=== PATIENT | female | born 1985 | race Caucasian/White ===

== ENCOUNTER 2019-07-07 13:26 | Emergency (ER) | payer SELFPAY ==
[2019-07-07 13:37] VITALS: BP 132/73; PULSE 109; RESP 16; TEMP 37.3; O2SAT 98
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
== END 2019-07-07 14:04 | disposition home or self-care (01) ==
PROVIDERS: Emergency Provider Nurse Practitioner
DX: J20.9 Acute bronchitis, unspecified (principal); F17.200 Nicotine dependence, unspecified, uncomplicated
CPT/HCPCS: 81025; 99213; G0463

== ENCOUNTER 2019-07-10 11:24 | Emergency (ER) | payer SELFPAY ==
[2019-07-10 11:33] VITALS: BP 97/74; PULSE 117; RESP 18; TEMP 37.2; O2SAT 96
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
== END 2019-07-10 12:08 | disposition home or self-care (01) ==
PROVIDERS: Emergency Provider Nurse Practitioner
DX: F22 Delusional disorders (principal); L98.9 Disorder of the skin and subcutaneous tissue, unspecified; F17.200 Nicotine dependence, unspecified, uncomplicated
CPT/HCPCS: 99213; G0463

== ENCOUNTER 2019-07-19 20:19 | Emergency (ER) | payer SELFPAY ==
[2019-07-19 20:31] VITALS: BP 115/97; PULSE 104; RESP 22; TEMP 37; O2SAT 98
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
--- NOTE | 2019-07-19 21:53 | PC.NURSE ---
Pt left exam room approx 10 mins ago and went to pvt vehicle. Pt was briefly seen by PA. RN did not have chance to assess or speak with pt. Pt informed Triage staff that she is leaving [place] and will go to [facility] for another opinion. [place] steady and pt in no visible distress
== END 2019-07-19 21:48 | disposition home or self-care (01) ==
PROVIDERS: Emergency Provider Emergency Medicine
DX: Z03.89 Encounter for observation for other suspected diseases and conditions ruled out (principal); F17.210 Nicotine dependence, cigarettes, uncomplicated; F15.90 Other stimulant use, unspecified, uncomplicated; F11.90 Opioid use, unspecified, uncomplicated; Z62.810 Personal history of physical and sexual abuse in childhood; F42.4 Excoriation (skin-picking) disorder
CPT/HCPCS: 99281

== ENCOUNTER 2019-08-31 13:36 | Emergency (ER) | payer MEDICAID, SELFPAY ==
[2019-08-31 14:00] VITALS: BP 116/81; PULSE 89; RESP 18; O2SAT 100
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
== END 2019-08-31 15:56 | disposition home or self-care (01) ==
PROVIDERS: Emergency Provider Emergency Medicine
DX: L02.611 Cutaneous abscess of right foot (principal); F17.210 Nicotine dependence, cigarettes, uncomplicated; F42.4 Excoriation (skin-picking) disorder; F11.90 Opioid use, unspecified, uncomplicated
CPT/HCPCS: 10160; 99283; A9270

== ENCOUNTER 2019-09-15 18:57 | Emergency (ER) | payer MEDICAID, SELFPAY ==
[2019-09-15 19:07] VITALS: BP 135/96; PULSE 114; RESP 18; TEMP 36.9; O2SAT 97
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
[2019-09-15 20:11] LABS: Basophils Percent Auto 0.6 % (0.2-1.2); Eosinophils Absolute Auto 0.1 K/mm3 (0-0.3); Eosinophils Percent Auto 1.1 % (0-4.4); Hematocrit 38.8 % (37.0-47.0); Hemoglobin 12.6 g/dL (12.0-15.0); Immature Granulocyte Absolute 0.01 K/mm3 (0.00-0.031); Immature Granulocyte Percent A 0.2 % (0-0.5); Lymphocytes Absolute Auto 1.62 K/mm3 (0.9-3.2); Lymphocytes Percent Auto 30.8 % (18.3-44.2); Mean Corpuscular HGB Conc 32.5 g/dl (32-36); Mean Corpuscular Hemoglobin 28.4 pg (26-34); Mean Corpuscular Volume 87.6 fl (80-100); Mean Platelet Volume 9.3 fl (7.4-10.4); Monocytes Absolute Auto 0.3 K/mm3 (0.1-0.6); Monocytes Percent Auto 6.1 % (2.6-8.5); Neutrophils Absolute Auto 3.2 K/mm3 (1.3-6.7); Neutrophils Percent Auto 61.2 % (45.5-73.1); Platelet Count Result 180 k/mm3 (150-375); Red Blood Count 4.43 M/mm3 (4.2-5.4); Red Cell Distribution Width 12.6 % (11.5-14.5); White Blood Count 5.3 K/mm3 (4.5-10.0)
[2019-09-15] MEDS: IBUPROFEN 600 MG TABLET PO (20:19)
[2019-09-15 20:23] LABS: Alanine Aminotransferase 82 U/L (4-35); Alkaline Phosphatase 96 U/L (38-126); Aspartate Amino Transferase 69 U/L (14-36); Bilirubin,Total 0.2 mg/dL (0.2-1.3); Blood Urea Nitrogen 10 mg/dL (7-17); Carbon Dioxide 30 mmol/L (22-30); Chloride 103 mmol/L (98-107); Estimated CRCL calculation 80 ml/min; Estimated Glomerular Filt Rate > 60; Glucose 83 mg/dL (65-105); Potassium 4.1 mmol/L (3.4-5.0); Sodium 138 mmol/L (137-145)
== END 2019-09-15 20:30 | disposition home or self-care (01) ==
PROVIDERS: Physician Assistant; Emergency Provider General Practice
DX: Z71.1 Person with feared health complaint in whom no diagnosis is made (principal); F11.90 Opioid use, unspecified, uncomplicated; F17.210 Nicotine dependence, cigarettes, uncomplicated; K76.9 Liver disease, unspecified; F42.4 Excoriation (skin-picking) disorder; Z86.19 Personal history of other infectious and parasitic diseases
CPT/HCPCS: 36415; 80053; 85025; 99283; A9270

== ENCOUNTER 2019-09-30 20:30 | Emergency (ER) | payer MEDICAID, SELFPAY ==
[2019-09-30 20:43] VITALS: RESP 20
[2019-09-30 20:54] VITALS: BP 124/93; PULSE 108; RESP 18; TEMP 36.7; O2SAT 99
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
== END 2019-09-30 21:15 | disposition home or self-care (01) ==
PROVIDERS: Emergency Provider Emergency Medicine
DX: Z04.89 Encounter for examination and observation for other specified reasons (principal); R20.2 Paresthesia of skin
CPT/HCPCS: 99281

== ENCOUNTER 2019-11-02 00:32 | Emergency (ER) | payer MEDICAID, SELFPAY ==
[2019-11-02 00:50] VITALS: BP 128/95; PULSE 83; RESP 18; TEMP 37.2; O2SAT 98
[2019-11-02 01:09] LABS: Basophils Percent Auto 0.7 % (0.2-1.2); Eosinophils Absolute Auto 0.1 K/mm3 (0-0.3); Eosinophils Percent Auto 2.7 % (0-4.4); Hematocrit 36.2 % (37.0-47.0); Hemoglobin 11.7 g/dL (12.0-15.0); Immature Granulocyte Absolute 0.01 K/mm3 (0.00-0.031); Immature Granulocyte Percent A 0.2 % (0-0.5); Lymphocytes Absolute Auto 1.57 K/mm3 (0.9-3.2); Lymphocytes Percent Auto 34.9 % (18.3-44.2); Mean Corpuscular HGB Conc 32.3 g/dl (32-36); Mean Corpuscular Hemoglobin 28.6 pg (26-34); Mean Corpuscular Volume 88.5 fl (80-100); Mean Platelet Volume 9.4 fl (7.4-10.4); Monocytes Absolute Auto 0.3 K/mm3 (0.1-0.6); Monocytes Percent Auto 7.3 % (2.6-8.5); Neutrophils Absolute Auto 2.4 K/mm3 (1.3-6.7); Neutrophils Percent Auto 54.2 % (45.5-73.1); Platelet Count Result 153 k/mm3 (150-375); Red Blood Count 4.09 M/mm3 (4.2-5.4); Red Cell Distribution Width 12.9 % (11.5-14.5); White Blood Count 4.5 K/mm3 (4.5-10.0)
[2019-11-02 01:23] LABS: Alanine Aminotransferase 17 U/L (4-35); Albumin Level 3.8 g/dL (3.5-5.1); Alkaline Phosphatase 74 U/L (38-126); Aspartate Amino Transferase 24 U/L (14-36); Bilirubin,Total 0.2 mg/dL (0.2-1.3); Blood Urea Nitrogen 9 mg/dL (7-17); Calcium 8.9 mg/dL (8.4-10.2); Carbon Dioxide 28 mmol/L (22-30); Chloride 103 mmol/L (98-107); Estimated CRCL calculation 127 ml/min; Estimated Glomerular Filt Rate > 60; Ethanol < 10 mg/dL (<10); Glucose 109 mg/dL (65-105); Potassium 3.9 mmol/L (3.4-5.0); Sodium 138 mmol/L (137-145)
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
[2019-11-02 01:33] LABS: Add Urine Microscopic? YES; Appearance Urine Clear (Clear); Bilirubin Urine Negative (Negative); Blood Urine Negative (Negative); Color Urine Yellow (Yellow); Glucose Urine UA Negative (Negative); Ketones Urine Negative (Negative); Leukocyte Esterase Ur Negative LEU/UL (Negative); Mucus Urine Rare /lpf; Nitrate Urine Negative (Negative); Protein Urine Negative (Negative); RBC Urine 0-2 /hpf (0-2); Specific Grav Ur 1.021 (1.001-1.035); Squamous Epithelial Cell Urine Moderate /hpf (Few); WBC Urine 0-3 /hpf
--- NOTE | 2019-11-02 01:35 | PC.NURSE ---
Pt appears to be sleeping on stretcher. Sitter remains at bedside.
[2019-11-02 01:57] LABS: Barbiturate Screen Urine Negative (Negative); Benzodiazepines Screen Urine Negative (Negative)
[2019-11-02 02:09] LABS: Cannabinoid Screen Urine Negative (Negative); Cocaine Screen Urine Negative (Negative); Methadone Screen Urine Negative (Negative); Opiate Screen Urine Negative (Negative); Phencyclidine Screen Urine Negative (Negative)
[2019-11-02 02:20] LABS: Amphetamine Screen Urine Positive (Negative)
--- NOTE | 2019-11-02 02:35 | PC.NURSE ---
Pt is medically cleared per Dr. Ralph.
--- NOTE | 2019-11-02 02:45 | PC.NURSE ---
Pt resting on stretcher quietly. Sitter remains at bedside.
--- NOTE | 2019-11-02 03:47 | PC.NURSE ---
Sitter back at bedside, pt sleeping soundly at present.
--- NOTE | 2019-11-02 04:10 | PC.NURSE ---
Pt appears to be asleep on stretcher. Sitter remains at bedside.
--- NOTE | 2019-11-02 05:32 | PC.NURSE ---
Pt asleep on stretcher. Sitter remains at bedside per protocol.
[2019-11-02] MEDS: AMOXICILLIN/CLAVULANATE K 875-125 MG TAB 1 TABLET PO (06:30)
--- NOTE | 2019-11-02 06:31 | PC.NURSE ---
Pt given med po. Awakens easily. Denies needs at present. Sitter remains at bedside.
[2019-11-02 09:15] VITALS: BP 113/75; PULSE 77; RESP 18; TEMP 37.5; O2SAT 98
--- NOTE | 2019-11-02 09:18 | PC.NURSE ---
This RN went into pts room to get vitals. Pt was sleeping. This RN woke pt up. Pt states she will need medicine for withdrawing today. Informed pt I would tell DrJodi This RN took vitals and then pt went back to sleep.
--- NOTE | 2019-11-02 10:10 | PC.NURSE ---
PT requested crisis to be called. This RN called and spoke with Erica that states Geno who is the [facility] person will be here in approx 1 hour. Pt also requested a breakfast tray. Charge nurse called for one. Sitter is still at bedside.
--- NOTE | 2019-11-02 11:04 | PC.NURSE ---
Crisis here to speak with pt. Sitter at bedside, pt sleeping.
--- NOTE | 2019-11-02 11:23 | PC.NURSE ---
Geno from Crisis was here speaking with pt. Per Geno she is not going to make a safety contract with pt due do the fact that pt was sleepy . Geno states pt is good to go because at this time pt denies and SI/Hi ideations. Geno did speak with Dr. Marr before she left.
== END 2019-11-02 12:58 | disposition home or self-care (01) ==
PROVIDERS: Emergency Provider Emergency Medicine
DX: F20.9 Schizophrenia, unspecified (principal); F11.20 Opioid dependence, uncomplicated; L03.113 Cellulitis of right upper limb; F17.210 Nicotine dependence, cigarettes, uncomplicated; K76.9 Liver disease, unspecified; L98.8 Other specified disorders of the skin and subcutaneous tissue; F42.4 Excoriation (skin-picking) disorder; Z09 Encounter for follow-up examination after completed treatment for conditions other than malignant neoplasm
CPT/HCPCS: 36415; 80053; 80307; 81001; 81025; 84443; 85025; 99284; A9270

== ENCOUNTER 2020-01-17 03:15 | Emergency (ER) | payer MEDICAID, SELFPAY ==
[2020-01-17 03:21] VITALS: BP 114/77; PULSE 86; RESP 18; TEMP 36.9; O2SAT 97
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
[2020-01-17] MEDS: LIDO 1%/EPINEPHRINE 1:100,000 20 ML VIAL 10 ML INFILTRATE (03:37)
[2020-01-17 04:03] VITALS: BP 113/68; PULSE 77; RESP 16; O2SAT 97
== END 2020-01-17 04:05 | disposition home or self-care (01) ==
PROVIDERS: Emergency Provider Emergency Medicine
DX: L02.211 Cutaneous abscess of abdominal wall (principal); F41.9 Anxiety disorder, unspecified; F32.9 Major depressive disorder, single episode, unspecified
CPT/HCPCS: 10060; 99283; A9270

== ENCOUNTER 2020-03-24 04:55 | Emergency (ER) | payer OTHER, SELFPAY ==
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
--- NOTE | 2020-03-24 04:57 | ECG_ITS ---
Measurements Intervals [place] Rate: 71 P: 17 OR: 125 QRS: 36 QRSD: 78 T: 48 QT: 377 QTc: 410 Interpretive Statements SINUS RHYTHM BASELINE ARTIFACT- I, II, AVR, AVL, AVF, V4-V6 NORMAL ECG Electronically Signed On 03-24-2020 6:28:49 CDT by Aron Ramirez D.O.
[2020-03-24 05:00] VITALS: BP 126/82; PULSE 100; RESP 18; TEMP 36.4; O2SAT 100
[2020-03-24 05:42] LABS: Glucose Point of Care 73 (65-105)
[2020-03-24 05:53] LABS: Basophils Percent Auto 0.4 % (0.2-1.2); Eosinophils Absolute Auto 0.1 K/mm3 (0-0.3); Eosinophils Percent Auto 0.7 % (0-4.4); Hematocrit 36.1 % (37.0-47.0); Hemoglobin 12.3 g/dL (12.0-15.0); Immature Granulocyte Absolute 0.03 K/mm3 (0.00-0.031); Immature Granulocyte Percent A 0.4 % (0-0.5); Lymphocytes Absolute Auto 1.95 K/mm3 (0.9-3.2); Lymphocytes Percent Auto 27.5 % (18.3-44.2); Mean Corpuscular HGB Conc 34.1 g/dl (32-36); Mean Corpuscular Hemoglobin 29.7 pg (26-34); Mean Corpuscular Volume 87.2 fl (80-100); Mean Platelet Volume 9.8 fl (7.4-10.4); Monocytes Absolute Auto 0.5 K/mm3 (0.1-0.6); Monocytes Percent Auto 6.6 % (2.6-8.5); Neutrophils Absolute Auto 4.6 K/mm3 (1.3-6.7); Neutrophils Percent Auto 64.4 % (45.5-73.1); Platelet Count Result 142 k/mm3 (150-375); Red Blood Count 4.14 M/mm3 (4.2-5.4); Red Cell Distribution Width 13.8 % (11.5-14.5); White Blood Count 7.1 K/mm3 (4.5-10.0)
[2020-03-24 06:03] LABS: Add Urine Microscopic? YES; Appearance Urine Clear (Clear); Bacteria Urine Trace /hpf; Bilirubin Urine Negative (Negative); Blood Urine Negative (Negative); Color Urine Yellow (Yellow); Glucose Urine UA Negative (Negative); Ketones Urine Negative (Negative); Leukocyte Esterase Ur Trace LEU/UL (Negative); Mucus Urine Rare /lpf; Nitrate Urine Negative (Negative); Protein Urine 1+ mg/dL (Negative); RBC Urine 0-2 /hpf (0-2); Specific Grav Ur 1.018 (1.001-1.035); Squamous Epithelial Cell Urine Moderate /hpf (Few); Urobilinogen Urine Negative mg/dL (<2.0)
[2020-03-24 06:05] LABS: Alanine Aminotransferase 166 U/L (4-35); Albumin Level 3.6 g/dL (3.5-5.1); Alkaline Phosphatase 87 U/L (38-126); Anion Gap 9 mmol/L (8-16); Aspartate Amino Transferase 94 U/L (14-36); Bilirubin,Total 0.7 mg/dL (0.2-1.3); Blood Urea Nitrogen 15 mg/dL (7-17); Calcium 8.4 mg/dL (8.4-10.2); Carbon Dioxide 26 mmol/L (22-30); Chloride 102 mmol/L (98-107); Estimated CRCL calculation 84 ml/min; Estimated Glomerular Filt Rate > 60; Glucose 85 mg/dL (65-105); Potassium 3.7 mmol/L (3.4-5.0); Sodium 137 mmol/L (137-145)
[2020-03-24 06:14] LABS: Acetaminophen < 10 ug/mL (10-30); Ethanol < 10 mg/dL (<10); Salicylate < 1.0 mg/dL (2-20)
[2020-03-24 06:17] LABS: Barbiturate Screen Urine Negative (Negative); Benzodiazepines Screen Urine Negative (Negative)
[2020-03-24 06:23] LABS: Cannabinoid Screen Urine Negative (Negative); Cocaine Screen Urine Negative (Negative); Methadone Screen Urine Negative (Negative); Opiate Screen Urine Negative (Negative); Phencyclidine Screen Urine Negative (Negative)
[2020-03-24 09:17] VITALS: BP 124/72; PULSE 98; RESP 12; O2SAT 99
[2020-03-24 10:45] VITALS: BP 109/82; PULSE 75; RESP 12; O2SAT 99
--- NOTE | 2020-03-24 10:45 | PC.NURSE ---
Pt. reevaluated for suicidal ideation by RN. Pt. deemed to be low risk based off columbia scale. Pt. denied currently being suicidal at this time but stated having thoughts with no plan. Pt. reevaluated by EDP, and EDP is ok with patient being discharged with mental health resources and substance abuse resources.
== END 2020-03-24 11:01 | disposition home or self-care (01) ==
PROVIDERS: Emergency Provider Emergency Medicine
DX: F15.10 Other stimulant abuse, uncomplicated (principal); T14.90XA Injury, unspecified, initial encounter; Y04.2XXA Assault by strike against or bumped into by another person, initial encounter; Z86.19 Personal history of other infectious and parasitic diseases; Z62.810 Personal history of physical and sexual abuse in childhood; K76.9 Liver disease, unspecified; F17.210 Nicotine dependence, cigarettes, uncomplicated
CPT/HCPCS: 36415; 80053; 80307; 81001; 81025; 82948; 84443; 85025; 87086; 93005; 99283

== ENCOUNTER 2020-04-11 02:38 | Observation (INO) | payer OTHER, SELFPAY ==
[2020-04-11] VITALS (17 sets, daily range): BP systolic 91–137; BP diastolic 67–101; PULSE 63–113; RESP 10–25; TEMP 36.1–36.4; O2SAT 92–100; BMI 17.3
--- NOTE | ~2020-04-11 | CT_ITS ---
EXAMINATION: CT brain wo con EXAM DATE: 04/11/2020 03:14 INDICATION: Temporary change in awareness. TECHNIQUE: Spiral CT of the head was performed without contrast. Axial, coronal and sagittal images were reviewed. The dose-length product (DLP) for this examination was 681.00 mGy-cm. The exposure w as tailored according to patient size, and iterative reconstruction (ASIR) was used as additional dos e reduction technique. There is no prior study for comparison. FINDINGS: There is no acute intraparenchymal hemorrhage. No evidence of intraparenchymal brain mass lesion. No evidence of acute infarction. There is no mass effect or midline shift. The ventricles are normal in size. There are no extra-axial collections. There are no acute calvarial fractures. T he orbits are unremarkable. Soft tissue is unremarkable. Mild sinus mucoperiosteal thickening. IMPRESSION: 1. Normal head CT examination. Reviewed, dictated and finalized at location . [employer]
[2020-04-11] MEDS: diphenhydrAMINE HCl INJ 50 MG/ML VIAL 25 MG IV PUSH (02:42)
[2020-04-11] MEDS: LORazepam INJ (*CRX) 2 MG/ML VIAL IV PUSH (02:42)
--- NOTE | 2020-04-11 02:45 | ECG_ITS ---
Measurements Intervals [place] Rate: 117 P: 69 DC: 129 QRS: 42 QRSD: 82 T: 45 QT: 332 QTc: 465 Interpretive Statements SINUS TACHYCARDIA LEFT ATRIAL ENLARGEMENT BORDERLINE T WAVE ABNORMALITY- ANTERIOR LEADS ABNORMAL ECG Electronically Signed On 04-11-2020 6:54:29 [employer] SET UP OPERATOR JIG by Aron Ramirez D.O.
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
[2020-04-11] MEDS: LACTATED RINGERS 1,000 ML 999 ML IV CONT (03:04)
[2020-04-11 03:13] LABS: Basophils Percent Auto 0.5 % (0.2-1.2); Eosinophils Absolute Auto 0.1 K/mm3 (0-0.3); Eosinophils Percent Auto 0.8 % (0-4.4); Hematocrit 37.6 % (37.0-47.0); Hemoglobin 12.6 g/dL (12.0-15.0); Immature Granulocyte Absolute 0.01 K/mm3 (0.00-0.031); Immature Granulocyte Percent A 0.2 % (0-0.5); Lymphocytes Absolute Auto 1.66 K/mm3 (0.9-3.2); Lymphocytes Percent Auto 27.9 % (18.3-44.2); Mean Corpuscular HGB Conc 33.5 g/dl (32-36); Mean Corpuscular Hemoglobin 29.8 pg (26-34); Mean Corpuscular Volume 88.9 fl (80-100); Mean Platelet Volume 9.4 fl (7.4-10.4); Monocytes Absolute Auto 0.4 K/mm3 (0.1-0.6); Monocytes Percent Auto 6.1 % (2.6-8.5); Neutrophils Absolute Auto 3.8 K/mm3 (1.3-6.7); Neutrophils Percent Auto 64.5 % (45.5-73.1); Platelet Count Result 171 k/mm3 (150-375); Red Blood Count 4.23 M/mm3 (4.2-5.4); Red Cell Distribution Width 13.4 % (11.5-14.5)
--- NOTE | 2020-04-11 03:20 | PC.NURSE ---
Pt. to ct
[2020-04-11 03:26] LABS: Alanine Aminotransferase 98 U/L (4-35); Albumin Level 3.8 g/dL (3.5-5.1); Alkaline Phosphatase 79 U/L (38-126); Anion Gap 5 mmol/L (8-16); Aspartate Amino Transferase 70 U/L (14-36); Bilirubin,Total 0.5 mg/dL (0.2-1.3); Blood Urea Nitrogen 16 mg/dL (7-17); Carbon Dioxide 31 mmol/L (22-30); Chloride 104 mmol/L (98-107); Estimated CRCL calculation 74 ml/min; Estimated Glomerular Filt Rate > 60; Glucose 117 mg/dL (65-105); Potassium 3.2 mmol/L (3.4-5.0); Sodium 140 mmol/L (137-145)
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
[2020-04-11 04:21] LABS: Acetaminophen < 10 ug/mL (10-30); Salicylate < 1.0 mg/dL (2-20)
[2020-04-11 04:24] LABS: Barbiturate Screen Urine Negative (Negative); Benzodiazepines Screen Urine Positive (Negative)
--- NOTE | 2020-04-11 04:26 | PC.NURSE ---
called pharmacy for pt. medication
[2020-04-11 04:29] LABS: Cannabinoid Screen Urine Negative (Negative); Cocaine Screen Urine Negative (Negative); Methadone Screen Urine Negative (Negative); Opiate Screen Urine Positive (Negative); Phencyclidine Screen Urine Negative (Negative)
[2020-04-11] MEDS: KCL 20 MEQ/SW 100 ML 100 ML 50 MEQ IVPB ×2 (04:38→08:29)
[2020-04-11] MEDS: SODIUM CHLORIDE 0.9% IV 1,000 ML 100 ML IV CONT (04:38)
[2020-04-11 04:39] LABS: Fractional Inspired Oxygen 21 %
[2020-04-11 04:43] LABS: Modified Allen's Test Pass; Site Drawn LEFT RADIAL
[2020-04-11 05:04] LABS: PCO2 ABG 50.1 mmHg (35.0-45.0); PO2 ABG 81.7 mmHg (80.0-100.0); pH ABG 7.338 (7.350-7.450)
[2020-04-11 05:05] LABS: Base Excess ABG -0.1 mEq/l (+/-2.0); HCO3 ABG 26.3 mEq/l (22.0-26.0)
[2020-04-11 05:06] LABS: Add Urine Microscopic? YES; Appearance Urine Cloudy (Clear); Bacteria Urine Trace /hpf; Bilirubin Urine Negative (Negative); Blood Urine 2+ (Negative); Color Urine Yellow (Yellow); Glucose Urine UA Negative (Negative); Ketones Urine Negative (Negative); Leukocyte Esterase Ur 2+ LEU/UL (Negative); Mucus Urine Rare /lpf; Nitrate Urine Negative (Negative); Protein Urine 2+ mg/dL (Negative); RBC Urine 21-50 /hpf (0-2); Specific Grav Ur 1.013 (1.001-1.035); Squamous Epithelial Cell Urine Rare /hpf (Few); Urobilinogen Urine Negative mg/dL (<2.0); WBC Urine >75 /hpf
[2020-04-11 05:07] LABS: Amphetamine Screen Urine Positive (Negative)
[2020-04-11 05:07] LABS: Oxygen Saturation ABG 95.3 % (95.0-100.0); Total Hemoglobin 12.4 g/dL (12.0-18.0)
[2020-04-11 05:08] LABS: Oxygen Content ABG 16.4 %vol (16.0-22.0); Oxyhemoglobin 93.9 % THb (90.0-100.0); PO2 FiO2 Ratio Arterial Blood 3.89 %
--- NOTE | 2020-04-11 08:24 | PCDIET ---
This patient, Jacey Queen, was admitted to Intensive Care Unit-10 at .535. Patient oriented to hospital policies and general routines including ID bracelet, bed and alarms, visiting hours, pain management, procedures, bathroom and other care routines, personal items, smoking policy, room service/diet, and visiting hours. Patient arouses to shaking, refuses to answer questions most of the time. Leave me alone you fucking bitch. Information on how to activate the Rapid Response Team has been discussed. Patient are encouraged to report perceived risks to care and to ask questions if they do not understand what they are told or what they should do.
[2020-04-11] MEDS: LACTATED RINGERS 1,000 ML 125 ML IV CONT ×2 (08:28→16:40)
[2020-04-11 08:32] LABS: Basophils Percent Auto 0.6 % (0.2-1.2); Eosinophils Absolute Auto 0.1 K/mm3 (0-0.3); Eosinophils Percent Auto 1.1 % (0-4.4); Hematocrit 36.9 % (37.0-47.0); Hemoglobin 12.4 g/dL (12.0-15.0); Immature Granulocyte Absolute 0.01 K/mm3 (0.00-0.031); Immature Granulocyte Percent A 0.2 % (0-0.5); Lymphocytes Percent Auto 27.1 % (18.3-44.2); Mean Corpuscular HGB Conc 33.6 g/dl (32-36); Mean Corpuscular Hemoglobin 30.2 pg (26-34); Mean Corpuscular Volume 89.8 fl (80-100); Mean Platelet Volume 9.4 fl (7.4-10.4); Monocytes Absolute Auto 0.5 K/mm3 (0.1-0.6); Monocytes Percent Auto 7.8 % (2.6-8.5); Neutrophils Percent Auto 63.2 % (45.5-73.1); Platelet Count Result 170 k/mm3 (150-375); Red Blood Count 4.11 M/mm3 (4.2-5.4); Red Cell Distribution Width 13.4 % (11.5-14.5); White Blood Count 6.3 K/mm3 (4.5-10.0)
[2020-04-11 08:43] LABS: Anion Gap 5 mmol/L (8-16); Blood Urea Nitrogen 14 mg/dL (7-17); Calcium 8.7 mg/dL (8.4-10.2); Carbon Dioxide 29 mmol/L (22-30); Chloride 104 mmol/L (98-107); Estimated CRCL calculation 81 ml/min; Estimated Glomerular Filt Rate > 60; Glucose 87 mg/dL (65-105); Potassium 4.2 mmol/L (3.4-5.0); Sodium 138 mmol/L (137-145)
[2020-04-11 09:50] LABS: Folic Acid 19.2 ng/mL (2.76->20)
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
--- NOTE | 2020-04-11 18:26 | PC.NURSE ---
This patient, Jacey Queen, was received from [ICU-10] on 04/11/20 at 1826. Patient/family oriented to unit policies and routines. REPORT RECEIVED FROM JAGDEEP EDWARDS AT BEDSIDE.
--- NOTE | 2020-04-11 18:35 | PC.NURSE ---
PATIENT TRANSFERRED TO ROOM 206. REPORT GIVEN TO MANDY GALLARDO. ALL QUESTIONS ANSWERED. SITTER AT BEDSIDE.
[2020-04-12] VITALS (7 sets, daily range): BP systolic 115–129; BP diastolic 70–79; PULSE 70–112; RESP 16–18; TEMP 36.2–37.2; O2SAT 98–100
[2020-04-12] MEDS: LACTATED RINGERS 1,000 ML 125 ML IV CONT ×2 (01:42→10:16)
[2020-04-12 11:15] LABS: Hemoglobin 13.1 g/dL (12.0-15.0); Mean Corpuscular HGB Conc 33.6 g/dl (32-36); Mean Corpuscular Hemoglobin 29.4 pg (26-34); Mean Corpuscular Volume 87.6 fl (80-100); Mean Platelet Volume 10.1 fl (7.4-10.4); Platelet Count Result 152 k/mm3 (150-375); Red Blood Count 4.45 M/mm3 (4.2-5.4); Red Cell Distribution Width 13.2 % (11.5-14.5); White Blood Count 4.4 K/mm3 (4.5-10.0)
[2020-04-12 12:15] LABS: Alanine Aminotransferase 107 U/L (4-35); Albumin Level 3.4 g/dL (3.5-5.1); Alkaline Phosphatase 71 U/L (38-126); Anion Gap 5 mmol/L (8-16); Aspartate Amino Transferase 89 U/L (14-36); Bilirubin,Total 0.6 mg/dL (0.2-1.3); Blood Urea Nitrogen 8 mg/dL (7-17); Calcium 8.6 mg/dL (8.4-10.2); Carbon Dioxide 27 mmol/L (22-30); Chloride 104 mmol/L (98-107); Estimated CRCL calculation 99 ml/min; Estimated Glomerular Filt Rate > 60; Glucose 141 mg/dL (65-105); Magnesium 1.9 mg/dL (1.6-2.3); Potassium 3.9 mmol/L (3.4-5.0); Sodium 136 mmol/L (137-145)
[2020-04-12] MEDS: ONDANSETRON INJ 4 MG/2 ML VIAL IV PUSH (12:49)
--- NOTE | 2020-04-12 15:30 | PC.NURSE ---
At approximately 1512 patient stated she wanted to leave AMA. Physician notified of patients' request at this time. I stressed the importance of remaining in the hospital through the duration of required medical care and educated the patient on potential risks and health concerns if she were to leave AMA.Patient verbalized understanding and signed the AMA form. I removed the patient's IV access at this time. She immediately got dressed and walked right out the front door with no shoes. I followed the patient the entire way outside and even tried to reason with her as she was walking off into the parking lot. Security was also notified at this time due patient's extensive illicit drug history.
--- NOTE | 2020-05-14 13:38 | PM.DS ---
DS: Admitting Diagnosis Admitting Diagnosis Admitting Diagnosis: DRUG OVERDOSE, AMS DS: Discharge Diagnosis Discharge Diagnosis (1) Acute encephalopathy: Code(s): G93.40 - Encephalopathy, unspecified Status: Acute Assessment and Plan: Likely secondary to drug overdose/intoxication. Admit to ICU, telemetry, Aspiration precautions. Neurochecks. NPO, Check TSH w/ reflex T4, B12 and Folate levels. Check urinalysis w/ reflex culture. Brain CT was unremarkable for acute pathology. The patient has been treated with ativan/benadryl/haldol which has calmed her down but also made it impossible to assess her neurological function at this time. We will need to re-evaluate her once these medications have work off. Continue close monitoring of cardiopulmonary function in the ICU. Animal Science Instructor has been consulted. Consider MRI and Neuro consult in am. (2) Drug overdose: Qualifiers: Encounter type: initial encounter Injury intent: accidental or unintentional Qualified Code(s): T50.901A - Poisoning by unspecified drugs, medicaments and biological substances, accidental (unintentional), initial encounter Code(s): T50.901A - Poisoning by unspecified drugs, medicaments and biological substances, accidental (unintentional), initial encounter Status: Acute Assessment and Plan: At this time it is unknown if the patient intentionally overdosed on an unknown drug or was simply intoxicated. We will check acetaminophen and salicylate levels which haven't been done yet. Urine tox screen pending. (3) Hypokalemia: Code(s): E87.6 - Hypokalemia Status: Acute Assessment and Plan: We will replace KCL IV. Monitor serum potassium. Telemetry. (4) Liver disease: Code(s): K76.9 - Liver disease, unspecified Status: Chronic Assessment and Plan: Monitor liver function. (5) Hepatitis C: Qualifiers: Viral hepatitis chronicity: unspecified Hepatic coma status: without hepatic coma Qualified Code(s): B19.20 - Unspecified viral hepatitis C without hepatic coma Code(s): B19.20 - Unspecified viral hepatitis C without hepatic coma Status: Chronic DS: Summary Hospital Course Reason for hospitalization: Chief complaint: od Narrative: This is a 34 year old female known drug abuser with history of HCV, depression, and previous suicidal ideation who presented to the hospital via EMS after acting erratic at home which was described to ER staff as yelling, flailing, and screaming nonsensical words. The patient was treated with Versed before arrival to the hospital. In the ER tonight the patient was treated with Benadry, Haldol, and Ativan due to her acute agitation and combative behavior. Brain CT was obtained which was negative for any acute intracranial pathology. Routine labs have been obtained. It's unknown if the patient has overdosed on any drugs or if she was simply intoxicated. ER provider has consulted Animal Science Instructor. On my encounter with the patient she is not arousable to any stimuli due to being medicated. No further history is obtainable at this time from the patient and no family members are present. Hospital Course: patient left AMA Time Spent with Patient Time attestation: Total time spent providing and/or coordinating discharge services: patient left AMA Exam Narrative: Exam Narrative: patient left AMA Discharge Plan Discharge Consulting providers: Jarrett Patel ; William Abraham ; Aron Ramirez ; Toney Simmons Patient Disposition: Left Against Medical Advice Discharge Medications: No Action No Home Medications RF: 0 Date of admission: 04/11/20 11:54 Primary Care Provider: PHYSICIAN,HOSPITAL TECHNICIAN Admitting Provider: Tristan Alcaraz Attending physician on admission: Tristan Alcaraz Condition: Stable Quality VTE Prophylaxis VTE prophylaxis: mechanical ordered
== END 2020-04-12 15:20 | disposition left against medical advice (07) ==
LOC: ANHED 04:39 → ANHICU 12:02 → ANHIMU 18:32
PROVIDERS: Family Medicine; Admitting Provider Family Medicine; Emergency Provider Emergency Medicine; Visit Provider Family Medicine
DX: N39.0 Urinary tract infection, site not specified (principal); G93.40 Encephalopathy, unspecified; B19.20 Unspecified viral hepatitis C without hepatic coma; K76.9 Liver disease, unspecified; E87.8 Other disorders of electrolyte and fluid balance, not elsewhere classified; E87.6 Hypokalemia; R82.5 Elevated urine levels of drugs, medicaments and biological substances; F17.210 Nicotine dependence, cigarettes, uncomplicated; F32.9 Major depressive disorder, single episode, unspecified
CPT/HCPCS: 36415; 36600; 51701; 70450; 80048; 80053; 80307; 81001; 82607; 82746; 82805; 83735; 84443; 85025; 85027; 87040; 87086; 93005; 96361; 96365; 96375; 96376; 99285; G0378; G0379; J0696; J1200; J2060; J2405; J3480; J7030; J7120

== ENCOUNTER 2020-06-01 08:02 | Emergency (ER) | payer OTHER, SELFPAY ==
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
[2020-06-01 08:09] VITALS: BP 128/99; PULSE 88; RESP 20; TEMP 36.8; O2SAT 100
[2020-06-01] MEDS: TETANUS,DIPHTHERIA,AC PERTUSSIS ADULT (0.5 ML) BOOSTRIX IM (08:25)
[2020-06-01 08:30] VITALS: BP 128/75; PULSE 93; RESP 16; O2SAT 96
== END 2020-06-01 08:30 | disposition home or self-care (01) ==
PROVIDERS: Emergency Provider Emergency Medicine
DX: L03.115 Cellulitis of right lower limb (principal); Z23 Encounter for immunization; F15.10 Other stimulant abuse, uncomplicated
CPT/HCPCS: 10060; 90471; 90715; 99283

== ENCOUNTER 2020-06-04 22:50 | Emergency (ER) | payer OTHER, SELFPAY ==
[2020-06-04 23:14] VITALS: BP 113/80; PULSE 111; RESP 16; TEMP 37.1; O2SAT 99
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
[2020-06-04] MEDS: HYDROcodone/acetaminophen (*CRX) 5-325 MG TABLET 1 TAB PO (23:56)
[2020-06-04] MEDS: AMOXICILLIN/CLAVULANATE K 875-125 MG TAB 1 TABLET PO (23:56)
== END 2020-06-05 00:05 | disposition home or self-care (01) ==
PROVIDERS: Emergency Provider Emergency Medicine
DX: S80.871A Other superficial bite, right lower leg, initial encounter (principal); W54.0XXA Bitten by dog, initial encounter
CPT/HCPCS: 99283; A9270

== ENCOUNTER 2020-06-09 01:06 | Emergency (ER) | payer OTHER, SELFPAY ==
[2020-06-09 01:13] VITALS: BP 125/76; PULSE 106; RESP 12; TEMP 37.1; O2SAT 97
[2020-06-09] MEDS: KETOROLAC 30 MG/ML VIAL (*BKC) IV PUSH (01:54)
[2020-06-09] MEDS: HYDROcodone/acetaminophen (*CRX) 5-325 MG TABLET 1 TAB PO (01:59)
[2020-06-09 02:04] LABS: Basophils Percent Auto 0.2 % (0.2-1.2); Hematocrit 36.1 % (37.0-47.0); Hemoglobin 12.5 g/dL (12.0-15.0); Immature Granulocyte Absolute 0.02 K/mm3 (0.00-0.031); Immature Granulocyte Percent A 0.5 % (0-0.5); Immature Platelet Fraction Pct 3.3 % (0.9-11.2); Lymphocytes Absolute Auto 0.92 K/mm3 (0.9-3.2); Lymphocytes Percent Auto 21.4 % (18.3-44.2); Mean Corpuscular HGB Conc 34.6 g/dl (32-36); Mean Corpuscular Hemoglobin 30.2 pg (26-34); Mean Corpuscular Volume 87.2 fl (80-100); Mean Platelet Volume 10.4 fl (7.4-10.4); Monocytes Absolute Auto 0.3 K/mm3 (0.1-0.6); Monocytes Percent Auto 7.7 % (2.6-8.5); Neutrophils Percent Auto 70.2 % (45.5-73.1); Platelet Count Result 139 k/mm3 (150-375); Red Blood Count 4.14 M/mm3 (4.2-5.4); Red Cell Distribution Width 13.5 % (11.5-14.5); White Blood Count 4.3 K/mm3 (4.5-10.0)
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
[2020-06-09 02:15] LABS: Lactic Acid Reflex 2.9 mmol/L (0.7-2.1)
[2020-06-09 02:16] LABS: Alanine Aminotransferase 73 U/L (4-35); Albumin Level 3.5 g/dL (3.5-5.1); Alkaline Phosphatase 67 U/L (38-126); Anion Gap 6 mmol/L (8-16); Aspartate Amino Transferase 206 U/L (14-36); Blood Urea Nitrogen 26 mg/dL (7-17); Calcium 8.3 mg/dL (8.4-10.2); Carbon Dioxide 31 mmol/L (22-30); Chloride 100 mmol/L (98-107); Estimated Glomerular Filt Rate > 60; Glucose 110 mg/dL (65-105); Potassium 3.8 mmol/L (3.4-5.0); Sodium 137 mmol/L (137-145)
[2020-06-09] MEDS: CLINDAMYCIN 600 MG/NS 50 ML 600 MG/50 ML PIGGYBACK 100 MG IVPB (02:36)
[2020-06-09 05:00] LABS: Reflex Lactic Acid Yes or No Add Lactic
== END 2020-06-09 03:36 | disposition home or self-care (01) ==
PROVIDERS: Emergency Provider Emergency Medicine; Referring Provider Family Medicine
DX: S81.812D Laceration without foreign body, left lower leg, subsequent encounter (principal); S81.811D Laceration without foreign body, right lower leg, subsequent encounter; W54.0XXD Bitten by dog, subsequent encounter; F17.210 Nicotine dependence, cigarettes, uncomplicated
CPT/HCPCS: 36415; 80053; 83605; 85025; 85055; 96365; 96375; 99284; A9270; J1885

== ENCOUNTER 2020-06-25 16:58 | Emergency (ER) | payer OTHER, SELFPAY ==
--- NOTE | ~2020-06-25 | XR_ITS ---
EXAMINATION: XR chest 1V portable INDICATION: Overdose, altered mental status TECHNIQUE: Portable AP chest at 1734 hours COMPARISON: None available FINDINGS: The lungs are free of acute opacities. There is no pleural effusion or pneumothorax. The ca rdiomediastinal silhouette is normal. The visualized osseous structures are unremarkable. IMPRESSION: 1. No acute cardiopulmonary abnormality. Reviewed, dictated and finalized at location A. [employer]
[2020-06-25 16:55] VITALS: BP 121/98; PULSE 112; RESP 14; TEMP 36.4; O2SAT 98
[2020-06-25 17:00] VITALS: RESP 23
--- NOTE | 2020-06-25 17:12 | PC.NURSE ---
This RN attempting to start an IV, Pt refusing.
[2020-06-25 17:40] VITALS: BP 119/79; PULSE 106; RESP 12; O2SAT 98
--- NOTE | 2020-06-25 17:40 | PC.NURSE ---
PT LAYING ON STRETCHER, PT ON TELE MONITOR - REFUSES IV AT THIS TIME. PUT UNCOOPERATIVE.
--- NOTE | 2020-06-25 17:57 | PC.NURSE ---
PT REFUSES TO PROVIDE U/A AT THIS TIME, RESTING ON STRETCHER, ON TELE MONITOR, STATES NO I DONT WANT AN IV OR FLUIDS, I FEEL TERRIBLE. JUST LEAVE ME ALONE.
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
--- NOTE | 2020-06-25 18:32 | PC.NURSE ---
Pt refused labs
--- NOTE | 2020-06-25 19:05 | PC.NURSE ---
patient walked out after signing out ama
[2020-06-25 19:23] VITALS: BP 114/79; PULSE 69; RESP 16; O2SAT 97
== END 2020-06-25 19:18 | disposition left against medical advice (07) ==
PROVIDERS: Emergency Provider Emergency Medicine
DX: T40.601A Poisoning by unspecified narcotics, accidental (unintentional), initial encounter (principal); F17.210 Nicotine dependence, cigarettes, uncomplicated; F41.9 Anxiety disorder, unspecified; F32.9 Major depressive disorder, single episode, unspecified
CPT/HCPCS: 71045; 99283

== ENCOUNTER 2020-08-20 18:06 | Emergency (ER) | payer OTHER, SELFPAY ==
--- NOTE | ~2020-08-20 | CT_ITS ---
EXAMINATION: CT brain wo con DATE: 08/20/2020 18:49 INDICATION: Altered mental state. History of schizophrenia and bipolar disease. Meth abuse. TECHNIQUE: Computed tomography (CT) of the abdomen was performed without intravenous contrast. Automa cory exposure control and iterative reconstruction technique were employed. Exam dose: 1059.33 mGy-cm total exam DLP. COMPARISON: 04/11/2020 CT head FINDINGS: 2 sets of scans were obtained due to motion. Both sets are limited by motion artifact. No apparent intracranial mass lesion or hemorrhage, midline shift or mass effect or subdural or epidu ral hematoma is detected. Normal ventricular size. Normal kelly-white matter differentiation. No apparent fracture or bone destruction of the cranial vault. Included paranasal sinuses and mastoid air cells are unremarkable. IMPRESSION: Limited examination due to motion artifact; no apparent abnormality Reviewed, dictated and finalized at [facility]. Reviewed, dictated and finalized at location A. IMPRESSION: Limited examination due to motion artifact; no apparent abnormalit y
--- NOTE | ~2020-08-20 | XR_ITS ---
XR chest 1V portable DATE: 08/20/2020 18:39 INDICATION: Transient alteration of awareness. TECHNIQUE: Portable upright AP chest on 08/20/2020 at 1841 hours COMPARISON: 06/25/2020 portable AP chest FINDINGS: Mild thoracic dextroscoliosis. Normal heart size. No hilar or mediastinal enlargement. Mild focal infiltrate is suggested in the right upper lobe including right lateral apical area. Other perkins no pulmonary infiltrate or consolidation, pleural effusion or pulmonary vascular congestion or p neumothorax. IMPRESSION: Mild infiltrate is suggested in the right upper lobe. Reviewed, dictated and finalized at location A.
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
[2020-08-20 18:27] VITALS: BP 104/71; PULSE 100; RESP 14; TEMP 36.1; O2SAT 99
[2020-08-20] MEDS: LORazepam INJ (*CRX) 2 MG/ML VIAL 1 MG IV PUSH (20:16)
[2020-08-20] MEDS: DEXTROSE 5%/LACTATED RINGERS 1,000 ML 999 ML IV CONT (20:22)
[2020-08-20 20:23] LABS: Basophils Absolute Auto 0.1 K/mm3 (0.0-0.1); Basophils Percent Auto 0.4 % (0.2-1.2); Eosinophils Percent Auto 0.1 % (0-4.4); Hematocrit 38.3 % (37.0-47.0); Hemoglobin 12.8 g/dL (12.0-15.0); Immature Granulocyte Absolute 0.07 K/mm3 (0.00-0.031); Immature Granulocyte Percent A 0.6 % (0-0.5); Lymphocytes Absolute Auto 1.25 K/mm3 (0.9-3.2); Lymphocytes Percent Auto 11.2 % (18.3-44.2); Mean Corpuscular HGB Conc 33.4 g/dl (32-36); Mean Corpuscular Hemoglobin 29.2 pg (26-34); Mean Corpuscular Volume 87.4 fl (80-100); Mean Platelet Volume 9.9 fl (7.4-10.4); Monocytes Absolute Auto 0.5 K/mm3 (0.1-0.6); Monocytes Percent Auto 4.3 % (2.6-8.5); Neutrophils Absolute Auto 9.3 K/mm3 (1.3-6.7); Neutrophils Percent Auto 83.4 % (45.5-73.1); Platelet Count Result 229 k/mm3 (150-375); Red Blood Count 4.38 M/mm3 (4.2-5.4); Red Cell Distribution Width 13.2 % (11.5-14.5); White Blood Count 11.1 K/mm3 (4.5-10.0)
[2020-08-20 20:30] LABS: Add Urine Microscopic? YES; Amorphous Sediment Urine Few; Appearance Urine Cloudy (Clear); Bacteria Urine 2+ /hpf; Bilirubin Urine Negative (Negative); Blood Urine 3+ (Negative); Color Urine Yellow (Yellow); Glucose Urine UA Negative (Negative); Ketones Urine Negative (Negative); Leukocyte Esterase Ur Trace LEU/UL (Negative); Mucus Urine Rare /lpf; Nitrate Urine Positive (Negative); Protein Urine Negative (Negative); Squamous Epithelial Cell Urine Few /hpf (Few); Urobilinogen Urine Negative mg/dL (<2.0); WBC Urine 16-20 /hpf
[2020-08-20 20:33] LABS: Prothrombin Time 13.7 Seconds (11.1-14.7)
[2020-08-20 20:34] LABS: Partial Thromboplastin Time 30.1 SECONDS (22.3-36.8)
[2020-08-20 20:40] LABS: Acetaminophen < 10 ug/mL (10-30); Ethanol < 10 mg/dL (<10); Potassium 3.4 mmol/L (3.4-5.0); Salicylate < 1.0 mg/dL (2-20)
[2020-08-20 20:41] LABS: Lactic Acid Reflex 0.9 mmol/L (0.7-2.1)
[2020-08-20 20:50] LABS: Alanine Aminotransferase 85 U/L (4-35); Albumin Level 4.2 g/dL (3.5-5.1); Alkaline Phosphatase 88 U/L (38-126); Anion Gap 9 mmol/L (8-16); Aspartate Amino Transferase 75 U/L (14-36); Bilirubin,Total 0.5 mg/dL (0.2-1.3); Blood Urea Nitrogen 21 mg/dL (7-17); CRP < 0.5 mg/dL (<1.0); Carbon Dioxide 27 mmol/L (22-30); Chloride 104 mmol/L (98-107); Creatine Kinase 459 U/L (30-135); Estimated CRCL calculation 61 ml/min; Estimated Glomerular Filt Rate > 60; Glucose 68 mg/dL (65-105); Lipase 73 U/L (23-300); Magnesium 1.9 mg/dL (1.6-2.3); Phosphorus 4.1 mg/dL (2.5-4.5); Sodium 140 mmol/L (137-145)
[2020-08-20 20:54] LABS: Barbiturate Screen Urine Negative (Negative); Benzodiazepines Screen Urine Negative (Negative)
[2020-08-20 20:57] LABS: Cannabinoid Screen Urine Negative (Negative); Cocaine Screen Urine Negative (Negative); Methadone Screen Urine Negative (Negative); Opiate Screen Urine Negative (Negative); Phencyclidine Screen Urine Negative (Negative)
[2020-08-20] MEDS: SODIUM CHLORIDE 0.9% IV 1,000 ML 999 ML IV CONT (21:15)
[2020-08-20 21:23] LABS: Amphetamine Screen Urine Positive (Negative)
[2020-08-21 01:25] VITALS: BP 108/62; PULSE 91; RESP 18; TEMP 36.2; O2SAT 97
== END 2020-08-21 01:27 | disposition home or self-care (01) ==
PROVIDERS: Emergency Medicine Emergency Medical Services; Emergency Provider Emergency Medicine
DX: F15.10 Other stimulant abuse, uncomplicated (principal); N39.0 Urinary tract infection, site not specified; F17.210 Nicotine dependence, cigarettes, uncomplicated; Z86.19 Personal history of other infectious and parasitic diseases; Z62.810 Personal history of physical and sexual abuse in childhood; K76.9 Liver disease, unspecified; F42.4 Excoriation (skin-picking) disorder
CPT/HCPCS: 36415; 70450; 71045; 80053; 80307; 81001; 81025; 82550; 82948; 83605; 83690; 83735; 84100; 84443; 85025; 85610; 85730; 86140; 87040; 87077; 87086; 87088; 87186; 96361; 96374; 96375; 99284; J0696; J2060; J7030; J7121

== ENCOUNTER 2020-08-23 19:27 | Observation (INO) | payer OTHER, SELFPAY ==
[2020-08-23 19:33] VITALS: BP 152/115; PULSE 134; RESP 24; TEMP 37.2; O2SAT 98
[2020-08-23] MEDS: LORazepam INJ (*CRX) 2 MG/ML VIAL IM (19:55)
[2020-08-23] MEDS: HALOPERIDOL LACTATE 5 MG/ML VIAL IM (19:55)
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
[2020-08-23] MEDS: SODIUM CHLORIDE 0.9% IV 1,000 ML 999 ML IV CONT ×2 (20:15→20:43)
[2020-08-23 20:26] LABS: Base Excess ABG -0.6 mEq/l (+/-2.0); Device ROOM AIR; Fractional Inspired Oxygen 21 %; HCO3 ABG 25.1 mEq/l (22.0-26.0); Modified Allen's Test Pass; Oxygen Content ABG 15.3 %vol (16.0-22.0); Oxygen Saturation ABG 95.8 % (95.0-100.0); Oxyhemoglobin 94.2 % THb (90.0-100.0); PCO2 ABG 45.6 mmHg (35.0-45.0); PO2 ABG 83.1 mmHg (80.0-100.0); PO2 FiO2 Ratio Arterial Blood 3.96 %; Site Drawn LEFT RADIAL; Total Hemoglobin 11.5 g/dL (12.0-18.0); pH ABG 7.358 (7.350-7.450)
[2020-08-23 20:42] LABS: Basophils Percent Auto 0.2 % (0.2-1.2); Eosinophils Percent Auto 0.2 % (0-4.4); Hemoglobin 10.2 g/dL (12.0-15.0); Immature Granulocyte Absolute 0.05 K/mm3 (0.00-0.031); Immature Granulocyte Percent A 0.5 % (0-0.5); Lymphocytes Absolute Auto 1.57 K/mm3 (0.9-3.2); Lymphocytes Percent Auto 14.3 % (18.3-44.2); Mean Corpuscular HGB Conc 32.9 g/dl (32-36); Mean Corpuscular Hemoglobin 29.2 pg (26-34); Mean Corpuscular Volume 88.8 fl (80-100); Mean Platelet Volume 9.4 fl (7.4-10.4); Monocytes Absolute Auto 0.5 K/mm3 (0.1-0.6); Monocytes Percent Auto 4.8 % (2.6-8.5); Neutrophils Absolute Auto 8.8 K/mm3 (1.3-6.7); Platelet Count Result 193 k/mm3 (150-375); Red Blood Count 3.49 M/mm3 (4.2-5.4); Red Cell Distribution Width 13.3 % (11.5-14.5)
[2020-08-23 20:44] VITALS: BP 102/52; PULSE 126; RESP 14; O2SAT 96
[2020-08-23 20:53] LABS: Alanine Aminotransferase 69 U/L (4-35); Albumin Level 3.3 g/dL (3.5-5.1); Alkaline Phosphatase 59 U/L (38-126); Anion Gap 8 mmol/L (8-16); Aspartate Amino Transferase 83 U/L (14-36); Bilirubin,Total 0.6 mg/dL (0.2-1.3); Blood Urea Nitrogen 11 mg/dL (7-17); Calcium 8.2 mg/dL (8.4-10.2); Carbon Dioxide 26 mmol/L (22-30); Chloride 105 mmol/L (98-107); Creatine Kinase 1162 U/L (30-135); Estimated CRCL calculation 96 ml/min; Estimated Glomerular Filt Rate > 60; Glucose 99 mg/dL (65-105); Potassium 3.3 mmol/L (3.4-5.0); Sodium 139 mmol/L (137-145)
[2020-08-23 21:09] LABS: Add Urine Microscopic? YES; Amorphous Sediment Urine Few; Appearance Urine Cloudy (Clear); Bacteria Urine Trace /hpf; Bilirubin Urine Negative (Negative); Blood Urine 3+ (Negative); Color Urine Yellow (Yellow); Glucose Urine UA Negative (Negative); Hyaline Casts Urine 30-49 /lpf; Ketones Urine Negative (Negative); Leukocyte Esterase Ur Negative LEU/UL (Negative); Mucus Urine Rare /lpf; Nitrate Urine Negative (Negative); Protein Urine 1+ mg/dL (Negative); RBC Urine 21-50 /hpf (0-2); Specific Grav Ur 1.011 (1.001-1.035); Squamous Epithelial Cell Urine Rare /hpf (Few); Urobilinogen Urine Negative mg/dL (<2.0)
[2020-08-23 21:19] LABS: Barbiturate Screen Urine Negative (Negative); Benzodiazepines Screen Urine Negative (Negative)
[2020-08-23 21:20] LABS: Cannabinoid Screen Urine Negative (Negative); Cocaine Screen Urine Negative (Negative); Methadone Screen Urine Negative (Negative); Opiate Screen Urine Negative (Negative); Phencyclidine Screen Urine Negative (Negative)
[2020-08-23 21:42] LABS: Amphetamine Screen Urine Positive (Negative)
[2020-08-23 22:30] VITALS: BP 107/76; PULSE 100; RESP 14; O2SAT 97
[2020-08-24] VITALS (7 sets, daily range): BP systolic 105–121; BP diastolic 59–75; PULSE 69–99; RESP 12–18; TEMP 36.1–36.8; O2SAT 95–100; BMI 19.3
[2020-08-24 00:59] LABS: Creatine Kinase 886 U/L (30-135)
--- NOTE | 2020-08-24 01:54 | ADMGEN ---
This patient, Jacey Queen, was admitted to [facility] Surg Room 320-01. Patient/family oriented to hospital policies and general routines including ID bracelet, bed and alarms, visiting hours, pain management, procedures, bathroom and other care routines, personal items, smoking policy, room service/diet, and visiting hours. Information on how to activate the Rapid Response Team has been discussed. Patient/Family are encouraged to report perceived risks to care and to ask questions if they do not understand what they are told or what they should do.
[2020-08-24 08:15] LABS: Creatine Kinase 837 U/L (30-135)
[2020-08-24 10:48] LABS: Alanine Aminotransferase 69 U/L (4-35); Albumin Level 2.9 g/dL (3.5-5.1); Alkaline Phosphatase 55 U/L (38-126); Anion Gap 7 mmol/L (8-16); Aspartate Amino Transferase 95 U/L (14-36); Bilirubin,Total 0.5 mg/dL (0.2-1.3); Blood Urea Nitrogen 7 mg/dL (7-17); Calcium 7.6 mg/dL (8.4-10.2); Carbon Dioxide 21 mmol/L (22-30); Chloride 110 mmol/L (98-107); Estimated CRCL calculation 164 ml/min; Estimated Glomerular Filt Rate > 60; Glucose 45 mg/dL (65-105); Magnesium 1.5 mg/dL (1.6-2.3); Sodium 138 mmol/L (137-145)
[2020-08-24] MEDS: DEXTROSE 50% 25 GM/50 ML SYRINGE IV PUSH (11:17)
[2020-08-24] MEDS: DEXTROSE 5% 1,000 ML 1,000 ML 100 ML IV CONT (11:17)
[2020-08-24 11:55] LABS: Glucose Point of Care 266 (65-105)
[2020-08-24 12:00] LABS: Hematocrit 36.6 % (37.0-47.0); Hemoglobin 11.8 g/dL (12.0-15.0); Mean Corpuscular HGB Conc 32.2 g/dl (32-36); Mean Corpuscular Hemoglobin 29.4 pg (26-34); Mean Platelet Volume 9.7 fl (7.4-10.4); Platelet Count Result 174 k/mm3 (150-375); Red Blood Count 4.02 M/mm3 (4.2-5.4); Red Cell Distribution Width 13.5 % (11.5-14.5)
[2020-08-24] MEDS: MAGNESIUM SULF 2 GM/WATER 50ML 2 GM/50 ML BAG IVPB (12:01)
--- NOTE | 2020-08-24 14:50 | PM.IMPN ---
Progress Note: A&P Assessment and Plan (1) Methamphetamine abuse: Code(s): F15.10 - Other stimulant abuse, uncomplicated Status: Acute Assessment and Plan: 08/24/20 14:50 patient is a 35-year-old female with history of amphetamine abuse, patient apparently the patient had used drugs and was quite combative and agitated at the motel, because of her behavior with motel management decided not let her stay there and patient was brought emergency department for further evaluation, patient is quite somnolent confused unable to provide detailed review of symptom or history, nurse is present in the room, see states he is hungry wants to eat does not provide any more history (2) Rhabdomyolysis: Qualifiers: Encounter type: subsequent encounter Rhabdomyolysis type: traumatic Qualified Code(s): T79.6XXD - Traumatic ischemia of muscle, subsequent encounter Code(s): M62.82 - Rhabdomyolysis Status: Acute Assessment and Plan: Most likely secondary to amphetamine use page gently hydrating the patient and CK level of the trending down (3) Acute hypokalemia: Code(s): E87.6 - Hypokalemia Status: Acute Assessment and Plan: Poor p.o. intake will monitor and supplement (4) UTI (urinary tract infection): Code(s): N39.0 - Urinary tract infection, site not specified Status: Acute Assessment and Plan: Patient was diagnosed with a UTI prior to coming to hospital any being treated with doxycycline Subjective Date/time seen: Patient is admitted under observation status 08/24/20 14:50 patient is a 35-year-old female with history of amphetamine abuse, patient apparently the patient had used drugs and was quite combative and agitated at the motel, because of her behavior with motel management decided not let her stay there and patient was brought emergency department for further evaluation, patient is quite somnolent confused unable to provide detailed review of symptom or history, nurse is present in the room, see states he is hungry wants to eat does not provide any more history Review of Systems Review of Systems: ROS unobtainable: Yes unobtainable due to medical condition Exam Narrative: Exam Narrative: Brief physical exam, Appears chronically ill older than her age Patient is comfortable, NAD HEENT: eyes are clear and none icteric LUNGS: Normal respiratory effort ABD: Distended Lower extremities: no edema SKIN: nonjaundiced Neuro: Confused. Objective Data Vital Signs Vital Signs: Vital Signs - 24 hr 08/23/20 19:33 08/23/20 20:44 08/23/20 22:30 Temperature 98.9 F Pulse Rate 134 H 126 H 100 Respiratory Rate 24 H 14 14 Blood Pressure 152/115 H 102/52 L 107/76 Pulse Oximetry 98 96 97 08/24/20 00:28 08/24/20 00:29 08/24/20 02:00 Temperature 97.2 F L Pulse Rate 99 95 78 Respiratory Rate 13 12 18 Blood Pressure 111/75 111/75 105/59 L Pulse Oximetry 98 97 100 08/24/20 06:00 08/24/20 13:48 Temperature 97 F L Pulse Rate 69 83 Respiratory Rate 16 18 Blood Pressure 116/62 Pulse Oximetry 96 95 Intake/Output Intake/Output: Intake & Output 08/21/20 08/22/20 08/23/20 08/24/20 23:59 23:59 23:59 23:59 Intake Total 1999 420 Output Total 950 Balance 2000 -530 Meds/Results Medications: Active Medications Generic Name Dose Route Start Last Admin Trade Name Freq PRN Reason Stop Dose Admin Doxycycline Hyclate 100 mg 08/24/20 09:00 08/24/20 10:58 Doxycycline Hyclate 100 Mg Tablet PO 08/30/20 21:01 Not Given Q12HR BRIGITTE Enoxaparin Sodium 40 mg 08/24/20 18:00 Enoxaparin 40 Mg/0.4 Ml Syringe SUB-Q QPM BRIGITTE Acetaminophen 1,000 mg in 100 mls @ 400 mls/hr 08/24/20 00:06 Ofirmev 1,000 Mg Ivpb IVPB 08/25/20 00:07 Q6H PRN Mild Pain (1-3) or Fever Dextrose 1,000 mls @ 100 mls/hr 08/24/20 10:55 08/24/20 11:17 Dextrose 5% 1,000 Ml IV CONT 100 mls/hr .Q10H BRIGITTE Administration M
[2020-08-24] MEDS: SODIUM CHLORIDE 0.9% IV 1,000 ML 100 ML IV CONT (18:22)
[2020-08-24] MEDS: DOXYCYCLINE HYCLATE 100 MG TABLET PO (20:08)
[2020-08-25 05:41] VITALS: BP 130/92; PULSE 80; RESP 18; TEMP 36.6; O2SAT 100
--- NOTE | 2020-08-25 07:51 | PC.NURSE ---
Patient slept most of the night, was not interactive. Ignored most questions asked. Dr Stinson DC'd fluids. Mod-severe edema in her arms, no other indications of edema in legs or lung sounds noted. Tristan GALVAN removed her ring with lotion r/t swelling of finger around her ring.
[2020-08-25 07:59] LABS: Anion Gap 2 mmol/L (8-16); Blood Urea Nitrogen 4 mg/dL (7-17); Calcium 8.2 mg/dL (8.4-10.2); Carbon Dioxide 26 mmol/L (22-30); Chloride 110 mmol/L (98-107); Estimated CRCL calculation 102 ml/min; Estimated Glomerular Filt Rate > 60; Glucose 106 mg/dL (65-105); Magnesium 1.6 mg/dL (1.6-2.3); Potassium 3.9 mmol/L (3.4-5.0); Sodium 138 mmol/L (137-145)
--- NOTE | 2020-08-25 10:06 | PC.NURSE ---
Pt decided to leave A.M.A. Pt was able to answer orientation questions and was up independent in room. Pt was demanding to be discharged, Dr Flanagan was notified and came up to speak to the pt. Pt signed the A.M.A. paperwork and walked out of the building.
[2020-08-28 15:51] LABS: Methyl Alcohol Level None Detected (None Detected)
--- NOTE | 2020-09-16 10:09 | P.DS_ITS ---
DS: Admitting Diagnosis Admitting Diagnosis Admitting Diagnosis: Left ALBERTO from ER before I saw her DS: Summary Hospital Course Reason for hospitalization: Left AMA from ER before I saw her Hospital Course: Left AMA from ER before I saw her Time Spent with Patient Time attestation: Total time spent providing and/or coordinating discharge services: Left ALBERTO from ER before I saw her Discharge Plan Discharge Patient Disposition: Left Against Medical Advice Patient Instructions: How to Stop Smoking (GEN) Discharge Medications: No Action doxycycline hyclate 100 mg capsule 100 mg PO BID 10 Days Qty: 20 RF: 0 Date of admission: 08/24/20 01:22 Primary Care Provider: PHYSICIAN,SECURITY DISPATCHER Admitting Provider: Azucena Vences Attending physician on admission: Swati Flanagan Condition: Stable Quality VTE Prophylaxis VTE prophylaxis: pharmacologic ordered
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
== END 2020-08-25 09:20 | disposition left against medical advice (07) ==
LOC: ANHED 23:09 → ANH3MEDSUR 08-24 02:52
PROVIDERS: Admitting Provider Internal Medicine; Emergency Provider Emergency Medicine; Visit Provider Family Medicine
DX: F15.10 Other stimulant abuse, uncomplicated (principal); M62.82 Rhabdomyolysis; E87.6 Hypokalemia; N39.0 Urinary tract infection, site not specified
CPT/HCPCS: 36415; 36600; 80048; 80053; 80307; 81001; 82550; 82805; 82948; 83735; 84600; 85025; 85027; 96360; 96361; 96365; 96366; 96368; 96372; 96376; 99285; A9270; G0378; G0379; J1630; J2060; J3475; J7030; J7070

== ENCOUNTER 2020-09-06 20:55 | Emergency (ER) | payer OTHER, SELFPAY ==
[2020-09-06 21:10] VITALS: PULSE 80
[2020-09-06 21:34] VITALS: BP 116/80; PULSE 102; RESP 14; TEMP 36.4; O2SAT 99
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
--- NOTE | 2020-09-06 22:21 | PC.NURSE ---
pt is refusing all testing at this time.
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
--- NOTE | 2020-09-07 | ECG_ITS ---
Measurements Intervals [place] Rate: 86 P: 71 GA: 133 QRS: 46 QRSD: 80 T: 61 QT: 355 QTc: 426 Interpretive Statements SINUS RHYTHM VENTRICULAR PREMATURE COMPLEX POSSIBLE RIGHT ATRIAL ENLARGEMENT LEFT ATRIAL ENLARGEMENT INCOMPLETE RIGHT BUNDLE BRANCH BLOCK BORDERLINE ECG Electronically Signed On 09-07-2020 7:23:22 CDT by Aron Ramirez D.O.
[2020-09-07 00:06] VITALS: BP 130/85; PULSE 82; RESP 15; O2SAT 98
[2020-09-07 00:09] LABS: Basophils Percent Auto 0.5 % (0.2-1.2); Eosinophils Percent Auto 0.7 % (0-4.4); Hemoglobin 11.7 g/dL (12.0-15.0); Immature Granulocyte Absolute 0.01 K/mm3 (0.00-0.031); Immature Granulocyte Percent A 0.2 % (0-0.5); Lymphocytes Absolute Auto 2.09 K/mm3 (0.9-3.2); Lymphocytes Percent Auto 35.5 % (18.3-44.2); Mean Corpuscular HGB Conc 32.5 g/dl (32-36); Mean Corpuscular Hemoglobin 28.6 pg (26-34); Mean Platelet Volume 9.9 fl (7.4-10.4); Monocytes Absolute Auto 0.5 K/mm3 (0.1-0.6); Monocytes Percent Auto 8.5 % (2.6-8.5); Neutrophils Absolute Auto 3.2 K/mm3 (1.3-6.7); Neutrophils Percent Auto 54.6 % (45.5-73.1); Platelet Count Result 173 k/mm3 (150-375); Red Blood Count 4.09 M/mm3 (4.2-5.4); White Blood Count 5.9 K/mm3 (4.5-10.0)
[2020-09-07 00:22] LABS: Acetaminophen < 10 ug/mL (10-30); Ethanol < 10 mg/dL (<10); Salicylate < 1.0 mg/dL (2-20)
[2020-09-07 00:23] LABS: Alanine Aminotransferase 81 U/L (4-35); Albumin Level 3.9 g/dL (3.5-5.1); Alkaline Phosphatase 79 U/L (38-126); Anion Gap 8 mmol/L (8-16); Aspartate Amino Transferase 73 U/L (14-36); Bilirubin,Total 0.6 mg/dL (0.2-1.3); Blood Urea Nitrogen 17 mg/dL (7-17); Calcium 8.7 mg/dL (8.4-10.2); Carbon Dioxide 26 mmol/L (22-30); Chloride 105 mmol/L (98-107); Creatine Kinase 310 U/L (30-135); Estimated Glomerular Filt Rate > 60; Glucose 73 mg/dL (65-105); Potassium 3.6 mmol/L (3.4-5.0); Sodium 139 mmol/L (137-145)
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
--- NOTE | 2020-09-07 06:59 | PC.NURSE ---
security to room to escort pt out of ED. pt provided with non slip socks and water per request.
== END 2020-09-07 07:01 | disposition home or self-care (01) ==
PROVIDERS: Emergency Provider Emergency Medicine
DX: F15.10 Other stimulant abuse, uncomplicated (principal); B19.20 Unspecified viral hepatitis C without hepatic coma; F17.210 Nicotine dependence, cigarettes, uncomplicated; I49.3 Ventricular premature depolarization; R94.31 Abnormal electrocardiogram [ECG] [EKG]; I45.10 Unspecified right bundle-branch block
CPT/HCPCS: 36415; 76856; 80053; 80307; 82550; 85025; 93005; 99283

== ENCOUNTER 2020-09-20 03:55 | Emergency (ER) | payer OTHER, SELFPAY ==
[2020-09-20 03:54] VITALS: BP 125/84; PULSE 65; RESP 19; TEMP 36.2; O2SAT 100
--- NOTE | 2020-09-20 04:28 | PC.NURSE ---
While patient was getting labs drawn, ERP was in the room speaking with patient. She stated she was hungry and wanted food. ERP stated she can have crackers which is all we have at this time. Patient stated she wanted to leave I dont have time for this shit, I can just go home and eat. ERP notified, he stated if patient can ambulate with a steady gait she can sign out AMA.
--- NOTE | 2020-09-20 04:34 | PC.NURSE ---
Patient ambulated with a steady gait and stated I'm leaving, leave me alone. Patient informed of risks of leaving AMA by this RN and ERP. Patient stated I don't care. I'm leaving. Patient walked out of room with a steady gait to the waiting room. Patient refused to sign AMA papers and stated she will not take any discharge papers. Patient walked out of the ED and to the waiting room to call for a ride home.
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
--- NOTE | 2020-09-20 05:15 | ECG_ITS ---
Measurements Intervals [place] Rate: 65 P: 11 AK: 114 QRS: 15 QRSD: 88 T: 46 QT: 390 QTc: 408 Interpretive Statements SINUS RHYTHM WITH SHORT [place] INTERVAL INCOMPLETE RIGHT BUNDLE BRANCH BLOCK BASELINE ARTIFACT- V4-V6 BORDERLINE ECG Electronically Signed On 09-20-2020 8:45:07 CDT by Aron Ramirez D.O.
== END 2020-09-20 04:37 | disposition left against medical advice (07) ==
LOC: ANHED 04:34
PROVIDERS: Emergency Provider Emergency Medicine
DX: F19.10 Other psychoactive substance abuse, uncomplicated (principal); Z86.19 Personal history of other infectious and parasitic diseases; K76.9 Liver disease, unspecified; F17.210 Nicotine dependence, cigarettes, uncomplicated; I45.10 Unspecified right bundle-branch block
CPT/HCPCS: 93005; 99283

== ENCOUNTER 2020-09-29 18:43 | Emergency (ER) | payer OTHER, SELFPAY ==
[2020-09-29 19:00] VITALS: BP 116/75; PULSE 79; RESP 18; TEMP 37.1; O2SAT 99
[2020-09-29 19:52] LABS: Basophils Percent Auto 0.4 % (0.2-1.2); Eosinophils Absolute Auto 0.1 K/mm3 (0-0.3); Eosinophils Percent Auto 1.3 % (0-4.4); Hematocrit 36.8 % (37.0-47.0); Hemoglobin 11.4 g/dL (12.0-15.0); Immature Granulocyte Absolute 0.02 K/mm3 (0.00-0.031); Immature Granulocyte Percent A 0.4 % (0-0.5); Lymphocytes Percent Auto 27.7 % (18.3-44.2); Mean Corpuscular Hemoglobin 28.2 pg (26-34); Mean Corpuscular Volume 91.1 fl (80-100); Mean Platelet Volume 10.2 fl (7.4-10.4); Monocytes Absolute Auto 0.4 K/mm3 (0.1-0.6); Monocytes Percent Auto 8.7 % (2.6-8.5); Neutrophils Absolute Auto 2.9 K/mm3 (1.3-6.7); Neutrophils Percent Auto 61.5 % (45.5-73.1); Platelet Count Result 139 k/mm3 (150-375); Red Blood Count 4.04 M/mm3 (4.2-5.4); White Blood Count 4.7 K/mm3 (4.5-10.0)
[2020-09-29 20:02] LABS: Alanine Aminotransferase 190 U/L (4-35); Albumin Level 3.8 g/dL (3.5-5.1); Alkaline Phosphatase 68 U/L (38-126); Anion Gap 7 mmol/L (8-16); Aspartate Amino Transferase 159 U/L (14-36); Bilirubin,Total 0.2 mg/dL (0.2-1.3); Blood Urea Nitrogen 18 mg/dL (7-17); Calcium 8.9 mg/dL (8.4-10.2); Carbon Dioxide 28 mmol/L (22-30); Chloride 104 mmol/L (98-107); Estimated CRCL calculation 104 ml/min; Estimated Glomerular Filt Rate > 60; Glucose 109 mg/dL (65-105); Potassium 3.9 mmol/L (3.4-5.0); Sodium 139 mmol/L (137-145)
[2020-09-29 20:03] LABS: Ethanol < 10 mg/dL (<10)
[2020-09-29 20:37] LABS: Add Urine Microscopic? YES; Appearance Urine Cloudy (Clear); Bilirubin Urine Negative (Negative); Blood Urine 2+ (Negative); Calcium Oxalate Crystals Urine Present /hpf; Color Urine Yellow (Yellow); Glucose Urine UA Negative (Negative); Ketones Urine Negative (Negative); Leukocyte Esterase Ur Trace LEU/UL (Negative); Mucus Urine Rare /lpf; Nitrate Urine Negative (Negative); Protein Urine 1+ mg/dL (Negative); RBC Urine 51-75 /hpf (0-2); Specific Grav Ur 1.027 (1.001-1.035); Squamous Epithelial Cell Urine Moderate /hpf (Few)
[2020-09-29 20:56] LABS: Barbiturate Screen Urine Negative (Negative); Benzodiazepines Screen Urine Negative (Negative)
[2020-09-29 20:59] LABS: Cannabinoid Screen Urine Negative (Negative); Cocaine Screen Urine Positive (Negative); Methadone Screen Urine Negative (Negative); Opiate Screen Urine Negative (Negative); Phencyclidine Screen Urine Negative (Negative)
[2020-09-29 21:14] LABS: Amphetamine Screen Urine Positive (Negative)
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
--- NOTE | 2020-09-30 00:47 | PC.NURSE ---
Jeanette from Crisis reports plan of care of patient is discharge and follow up in the morning for detox. Patient understands plan of care and agrees. Patient states she is comfortable with discharge and reports she is staying with her sister this evening.
[2020-09-30 01:11] VITALS: BP 148/71; PULSE 92; RESP 18; O2SAT 100
--- NOTE | 2020-09-30 01:30 | PC.NURSE ---
pt was in the waiting room and reported to the biochemical engineer that she does not feel safe to go home. pensions retirement plan specialist and staff air tactical officer that took care of patient previously spoke with patient in the waiting room. She is reporting that she wants to be placed and does not trust herself to go home. She is concerned that she will do drugs again and wants to be voluntary and placed somewhere safe. Pt brought back into er room 15 and aware.
--- NOTE | 2020-09-30 01:55 | PC.NURSE ---
spoke with pt after discharge pt states My sister is in [facility] and cannot pick me up. I don't want to go home because I know I'll use IV drugs and I don't want to. pt states she feels she is no longer safe going home.
--- NOTE | 2020-09-30 02:10 | PC.NURSE ---
EDP Tawny notified of moderate risk on [place] assessment. MD aware pt having thoughts of hurting herself and states I will use a rope to hang myself. Per EDP no sitter needed at this time.
--- NOTE | 2020-09-30 03:23 | PC.NURSE ---
Paperwork faxed to [facility].
--- NOTE | 2020-09-30 04:37 | PC.NURSE ---
Spoke with Alber in Intake at [place]. He received patient's chart via fax.
[2020-09-30 08:18] VITALS: BP 117/84; PULSE 70; RESP 18; TEMP 36.9; O2SAT 99
--- NOTE | 2020-09-30 08:29 | PC.NURSE ---
COVID screening paperwork provided by [facility] completed and faxed to facility at this time.
--- NOTE | 2020-09-30 09:05 | PC.NURSE ---
Aram jackman [facility] called to direct RN to call [facility] (direct # [phone], nurse station # [phone]) to give report and get bed number on pt.
--- NOTE | 2020-09-30 09:08 | PC.NURSE ---
Called [facility]'s direct line, another person picked up. [facility] to call back.
--- NOTE | 2020-09-30 09:15 | PC.NURSE ---
Keily called from [facility] to get report on pt. Pt going to room 5345A. Ambulance to be called.
[2020-09-30 20:46] LABS: SARS-CoV-2 RNA PCR Negative
== END 2020-09-30 10:00 ==
PROVIDERS: Emergency Medicine; Emergency Provider Emergency Medicine
DX: F11.10 Opioid abuse, uncomplicated (principal); F32.9 Major depressive disorder, single episode, unspecified; F17.200 Nicotine dependence, unspecified, uncomplicated; F41.9 Anxiety disorder, unspecified; Z86.19 Personal history of other infectious and parasitic diseases
CPT/HCPCS: 36415; 80053; 80307; 81001; 81025; 84443; 85025; 99285; C9803; U0003; U0005

== ENCOUNTER 2020-11-23 03:18 | Emergency (ER) | payer OTHER, SELFPAY ==
[2020-11-23 03:25] VITALS: BP 126/74; PULSE 107; RESP 16; TEMP 36.9; O2SAT 100
[2020-11-23] MEDS: IBUPROFEN 600 MG TABLET PO (03:46)
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
--- NOTE | 2020-11-23 04:53 | PC.NURSE ---
pt d/c papers, instructed that she can stay in room 10 until someone can come get her in the morning or when the busses start running.
--- NOTE | 2020-11-23 06:38 | PC.NURSE ---
pt on the phone with her friend at this time.
--- NOTE | 2020-11-23 06:50 | PC.NURSE ---
pt friend states she will here in an hour to pick pt up. pt resting in room 10.
== END 2020-11-23 09:00 | disposition home or self-care (01) ==
PROVIDERS: Emergency Provider Emergency Medicine
DX: R21 Rash and other nonspecific skin eruption (principal); F17.210 Nicotine dependence, cigarettes, uncomplicated; Z86.19 Personal history of other infectious and parasitic diseases; K76.9 Liver disease, unspecified; Z91.5 Personal history of self-harm; Z62.810 Personal history of physical and sexual abuse in childhood
CPT/HCPCS: 99283; A9270

== ENCOUNTER 2021-01-06 22:23 | Emergency (ER) | payer OTHER, SELFPAY ==
[2021-01-06 22:24] VITALS: BP 131/79; PULSE 119; RESP 24; TEMP 36.6; O2SAT 100
[2021-01-07] VITALS (7 sets, daily range): BP systolic 98–123; BP diastolic 73–90; PULSE 55–82; RESP 12–20; O2SAT 97–100
--- NOTE | 2021-01-07 00:29 | PC.NURSE ---
pt is uncooperative , unable to get labs or ekg , dr. greenberg aware
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
[2021-01-07] MEDS: LORazepam INJ (*CRX) 2 MG/ML VIAL IM (01:26)
--- NOTE | 2021-01-07 01:28 | PC.NURSE ---
pt cooperative at this time, pt agreeable to lab draw, attempted to void in bsc unsuccessfully.
--- NOTE | 2021-01-07 01:58 | ECG_ITS ---
Measurements Intervals [place] Rate: 81 P: 68 ND: 145 QRS: 30 QRSD: 86 T: 53 QT: 406 QTc: 472 Interpretive Statements SINUS RHYTHM INCOMPLETE RIGHT BUNDLE BRANCH BLOCK BORDERLINE ECG Electronically Signed On 01-07-2021 7:44:57 CDT by Aron Ramirez D.O.
[2021-01-07 02:09] LABS: Basophils Percent Auto 0.3 % (0.2-1.2); Eosinophils Absolute Auto 0.2 K/mm3 (0-0.3); Eosinophils Percent Auto 2.9 % (0-4.4); Hematocrit 34.8 % (37.0-47.0); Hemoglobin 11.3 g/dL (12.0-15.0); Immature Granulocyte Absolute 0.02 K/mm3 (0.00-0.031); Immature Granulocyte Percent A 0.3 % (0-0.5); Lymphocytes Absolute Auto 1.46 K/mm3 (0.9-3.2); Lymphocytes Percent Auto 24.9 % (18.3-44.2); Mean Corpuscular HGB Conc 32.5 g/dl (32-36); Mean Corpuscular Hemoglobin 29.3 pg (26-34); Mean Corpuscular Volume 90.2 fl (80-100); Mean Platelet Volume 10.2 fl (7.4-10.4); Monocytes Absolute Auto 0.6 K/mm3 (0.1-0.6); Monocytes Percent Auto 9.5 % (2.6-8.5); Neutrophils Absolute Auto 3.6 K/mm3 (1.3-6.7); Neutrophils Percent Auto 62.1 % (45.5-73.1); Platelet Count Result 168 k/mm3 (150-375); Red Blood Count 3.86 M/mm3 (4.2-5.4); Red Cell Distribution Width 13.9 % (11.5-14.5); White Blood Count 5.9 K/mm3 (4.5-10.0)
[2021-01-07 02:14] LABS: Alanine Aminotransferase 51 U/L (4-35); Alkaline Phosphatase 62 U/L (38-126); Anion Gap 10 mmol/L (8-16); Aspartate Amino Transferase 48 U/L (14-36); Bilirubin,Total 0.7 mg/dL (0.2-1.3); Blood Urea Nitrogen 16 mg/dL (7-17); Calcium 9.2 mg/dL (8.4-10.2); Carbon Dioxide 25 mmol/L (22-30); Chloride 110 mmol/L (98-107); Estimated CRCL calculation 55 ml/min; Estimated Glomerular Filt Rate > 60; Glucose 85 mg/dL (65-110); Potassium 3.2 mmol/L (3.4-5.0); Sodium 145 mmol/L (137-145)
[2021-01-07 02:31] LABS: Acetaminophen < 10 ug/mL (10-30); Ethanol < 10 mg/dL (<10); Salicylate < 1.0 mg/dL (2-20)
[2021-01-07 02:39] LABS: Add Urine Microscopic? YES; Appearance Urine Cloudy (Clear); Bilirubin Urine Negative (Negative); Blood Urine 3+ (Negative); Calcium Oxalate Crystals Urine Present /hpf; Color Urine Yellow (Yellow); Glucose Urine UA Negative (Negative); Ketones Urine Trace mg/dL (Negative); Leukocyte Esterase Ur Trace LEU/UL (Negative); Mucus Urine Rare /lpf; Nitrate Urine Negative (Negative); Protein Urine 2+ mg/dL (Negative); RBC Urine >75 /hpf (0-2); Squamous Epithelial Cell Urine Occasional /hpf (Few); Urobilinogen Urine Negative mg/dL (<2.0); WBC Urine 16-20 /hpf
[2021-01-07 02:45] LABS: Thyroid Stimulating Hormone 0.586 uIU/mL (0.465-4.680)
[2021-01-07 02:47] LABS: Barbiturate Screen Urine Negative (Negative); Benzodiazepines Screen Urine Negative (Negative)
[2021-01-07 02:49] LABS: Cannabinoid Screen Urine Negative (Negative); Cocaine Screen Urine Negative (Negative); Methadone Screen Urine Negative (Negative); Opiate Screen Urine Positive (Negative); Phencyclidine Screen Urine Negative (Negative)
[2021-01-07 03:26] LABS: Amphetamine Screen Urine Positive (Negative)
== END 2021-01-07 11:27 | disposition home or self-care (01) ==
PROVIDERS: Emergency Provider Emergency Medicine
DX: F15.10 Other stimulant abuse, uncomplicated (principal); F19.10 Other psychoactive substance abuse, uncomplicated; F17.210 Nicotine dependence, cigarettes, uncomplicated; F41.9 Anxiety disorder, unspecified; F32.9 Major depressive disorder, single episode, unspecified
CPT/HCPCS: 36415; 51701; 80053; 80307; 81001; 81025; 84443; 85025; 87086; 93005; 96372; 99283; J2060

== ENCOUNTER 2021-03-05 23:39 | Emergency (ER) | payer OTHER, SELFPAY ==
--- NOTE | ~2021-03-05 | XR_ITS ---
EXAMINATION: XR elbow LT min 3V DATE: 03/06/2021 00:30 INDICATION: Abrasion at the left elbow. TECHNIQUE: Anteroposterior, two oblique and lateral views of the left elbow were obtained. COMPARISON: None. FINDINGS: Alignment is normal. No fracture or joint effusion. Joint spaces are normal. Small enthesophyte and t iny enthesopathic ossicle at the olecranon insertion of the distal triceps tendon. Prominent soft tis delmar swelling over the dorsum of the proximal forearm. No underlying cortical erosion or periosteal re action to suggest osteomyelitis. IMPRESSION: 1. No acute osseous abnormality. Reviewed, dictated and finalized at location A.
[2021-03-05 23:48] VITALS: BP 133/81; PULSE 112; RESP 18; TEMP 37; O2SAT 98
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
[2021-03-06 01:02] LABS: Basophils Percent Auto 0.5 % (0.2-1.2); Eosinophils Absolute Auto 0.2 K/mm3 (0-0.3); Eosinophils Percent Auto 4.9 % (0-4.4); Hematocrit 33.1 % (37.0-47.0); Hemoglobin 10.7 g/dL (12.0-15.0); Immature Granulocyte Absolute 0.02 K/mm3 (0.00-0.031); Immature Granulocyte Percent A 0.5 % (0-0.5); Lymphocytes Absolute Auto 1.23 K/mm3 (0.9-3.2); Mean Corpuscular HGB Conc 32.3 g/dl (32-36); Mean Corpuscular Hemoglobin 28.4 pg (26-34); Mean Corpuscular Volume 87.8 fl (80-100); Mean Platelet Volume 9.7 fl (7.4-10.4); Monocytes Absolute Auto 0.3 K/mm3 (0.1-0.6); Monocytes Percent Auto 8.6 % (2.6-8.5); Neutrophils Absolute Auto 2.1 K/mm3 (1.3-6.7); Neutrophils Percent Auto 53.5 % (45.5-73.1); Platelet Count Result 186 k/mm3 (150-375); Red Blood Count 3.77 M/mm3 (4.2-5.4); White Blood Count 3.8 K/mm3 (4.5-10.0)
[2021-03-06 01:29] LABS: Anion Gap 5 mmol/L (8-16); Blood Urea Nitrogen 13 mg/dL (7-17); Calcium 8.6 mg/dL (8.4-10.2); Carbon Dioxide 33 mmol/L (22-30); Chloride 103 mmol/L (98-107); Estimated CRCL calculation 88 ml/min; Estimated Glomerular Filt Rate > 60; Glucose 132 mg/dL (65-110); Potassium 3.5 mmol/L (3.4-5.0); Sodium 141 mmol/L (137-145)
[2021-03-06 01:52] LABS: Acetaminophen < 10 ug/mL (10-30); Ethanol < 10 mg/dL (<10)
--- NOTE | 2021-03-06 02:16 | PC.NURSE ---
pt refused iv sticks, erop advised.
[2021-03-06] MEDS: KETOROLAC 30 MG/ML VIAL (*BKC) IM (02:31)
[2021-03-06 03:52] VITALS: BP 153/103; PULSE 54; RESP 20; O2SAT 100
== END 2021-03-06 04:08 | disposition home or self-care (01) ==
PROVIDERS: Emergency Provider Emergency Medicine
DX: L03.114 Cellulitis of left upper limb (principal); Z86.19 Personal history of other infectious and parasitic diseases; K76.9 Liver disease, unspecified; F17.210 Nicotine dependence, cigarettes, uncomplicated
CPT/HCPCS: 36415; 73080; 80048; 80307; 85025; 96372; 99283; J1885

== ENCOUNTER 2023-07-27 13:45 | Emergency (ER) | payer OTHER, SELFPAY ==
[2023-07-27 13:57] VITALS: BP 134/75; PULSE 104; RESP 16; TEMP 37.1; O2SAT 98
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
== END 2023-07-27 14:20 | disposition home or self-care (01) ==
PROVIDERS: Emergency Provider Registered Nurse
DX: O23.11 Infections of bladder in pregnancy, first trimester (principal); B96.20 Unspecified Escherichia coli [E. coli] as the cause of diseases classified elsewhere; Z3A.00 Weeks of gestation of pregnancy not specified
CPT/HCPCS: 81003; 81025; 87077; 87086; 87186; 99213; G0463

== ENCOUNTER 2023-09-29 14:39 | Emergency (ER) | payer OTHER, SELFPAY ==
--- NOTE | ~2023-09-29 | US_ITS ---
EXAMINATION: US pelvic complete DATE: 09/29/2023 17:58 INDICATION: Vaginal bleeding. TECHNIQUE: Multiple transabdominal sonographic images of the pelvis were obtained. COMPARISON: None. FINDINGS: The uterus measures 10.2 x 5.6 x 5.4 cm. There is physiologic free fluid in the pelvis. The endometri al complex measures 23 mm in thickness. The right ovary measures 2.9 x 2.2 x 1.8 cm. The left ovary m easures 3.9 x 2.5 x 2.6 cm. There is normal vascular flow in the ovaries. IMPRESSION: 1. Thickened endometrial complex, which may be endometrial hyperplasia or polyp. Reviewed, dictated and finalized at location E. IMPRESSION: 1. Thickened endometrial complex, which may be endometrial hyperplasia or polyp .
[2023-09-29 14:43] VITALS: BP 141/118; PULSE 77; RESP 18; TEMP 36.5; O2SAT 100
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
[2023-09-29 17:16] VITALS: BP 113/75; PULSE 58; RESP 18; TEMP 36.6; O2SAT 99
[2023-09-29 17:31] LABS: Prothrombin Time 13.4 Seconds (11.1-14.7)
[2023-09-29 17:32] LABS: Basophils Percent Auto 0.3 % (0.2-1.2); Eosinophils Absolute Auto 0.2 K/mm3 (0-0.3); Eosinophils Percent Auto 2.1 % (0-4.4); Hematocrit 36.3 % (37.0-47.0); Hemoglobin 11.5 g/dL (12.0-15.0); Immature Granulocyte Absolute 0.04 K/mm3 (0.00-0.031); Immature Granulocyte Percent A 0.5 % (0-0.5); Lymphocytes Absolute Auto 1.34 K/mm3 (0.9-3.2); Lymphocytes Percent Auto 18.3 % (18.3-44.2); Mean Corpuscular HGB Conc 31.7 g/dl (32-36); Mean Corpuscular Hemoglobin 29.3 pg (26-34); Mean Corpuscular Volume 92.4 fl (80-100); Mean Platelet Volume 9.8 fl (7.4-10.4); Monocytes Absolute Auto 0.4 K/mm3 (0.1-0.6); Monocytes Percent Auto 5.9 % (2.6-8.5); Neutrophils Absolute Auto 5.3 K/mm3 (1.3-6.7); Neutrophils Percent Auto 72.9 % (45.5-73.1); Partial Thromboplastin Time 32.4 Seconds (22.3-36.8); Platelet Count Result 192 k/mm3 (150-375); Red Blood Count 3.93 M/mm3 (4.2-5.4); Red Cell Distribution Width 12.3 % (11.5-14.5); White Blood Count 7.3 K/mm3 (4.5-10.0)
[2023-09-29 17:33] LABS: Alanine Aminotransferase 12 U/L (6-35); Albumin Level 3.6 g/dL (3.5-5.1); Alkaline Phosphatase 59 U/L (38-126); Anion Gap 4 mmol/L (4-12); Aspartate Amino Transferase 19 U/L (14-36); Bilirubin,Total 0.3 mg/dL (0.2-1.3); Blood Urea Nitrogen 11 mg/dL (7-17); Calcium 9.1 mg/dL (8.4-10.2); Carbon Dioxide 31 mmol/L (22-30); Chloride 106 mmol/L (98-107); Estimated CRCL calculation 101 ml/min; Estimated Glomerular Filt Rate > 60; Glucose 102 mg/dL (65-110); Potassium 3.8 mmol/L (3.4-5.0); Sodium 141 mmol/L (137-145)
[2023-09-29 17:39] LABS: Appearance Urine Cloudy (Clear); Bacteria Urine 4+ /hpf; Bilirubin Urine Negative (Negative); Blood Urine 2+ (Negative); Color Urine Yellow (Yellow); Glucose Urine UA Negative (Negative); Ketones Urine Negative (Negative); Leukocyte Esterase Ur 2+ LEU/UL (Negative); Nitrate Urine Positive (Negative); Non Pathogenic Casts 0-2; Protein Urine Negative (Negative); Specific Grav Ur 1.019 (1.001-1.035); Squamous Epithelial Cell Urine Occasional /hpf (Few); Urobilinogen Urine 0.2 mg/dL (<2.0); WBC Urine 21-50 /hpf (0-3)
[2023-09-29 18:23] LABS: Add Urine Microscopic? YES
[2023-09-29 18:34] VITALS: BP 115/60; PULSE 78; RESP 16; TEMP 36.6; O2SAT 98
--- NOTE | 2023-09-29 19:19 | PC.NURSE ---
Assumed care of pt from MANDY Stuart at this time.
[2023-09-29 19:28] LABS: Trichomonas Vag PCR NOT DETECTED (NOT DETECTE)
[2023-09-29 19:52] LABS: Chlamydia trachomatis NOT DETECTED (NOT DETECTE); Neisseria gonorrhoeae PCR NOT DETECTED (NOT DETECTE)
== END 2023-09-29 20:07 | disposition left against medical advice (07) ==
PROVIDERS: Emergency Provider Student in an Organized Health Care Education/Training Program
DX: N93.8 Other specified abnormal uterine and vaginal bleeding (principal); K76.9 Liver disease, unspecified; F17.210 Nicotine dependence, cigarettes, uncomplicated; Z86.19 Personal history of other infectious and parasitic diseases
CPT/HCPCS: 36415; 76856; 80053; 81001; 81025; 85025; 85610; 85730; 86850; 86900; 86901; 87077; 87086; 87088; 87186; 87491; 87591; 87661; 99284

== ENCOUNTER 2023-10-29 11:41 | Emergency (ER) | payer OTHER, SELFPAY ==
[2023-10-29 11:56] VITALS: BP 89/67; PULSE 114; RESP 16; TEMP 36.7; O2SAT 99
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
== END 2023-10-29 12:27 | disposition home or self-care (01) ==
PROVIDERS: Emergency Provider Nurse Practitioner
DX: S00.412A Abrasion of left ear, initial encounter (principal); L08.9 Local infection of the skin and subcutaneous tissue, unspecified; X58.XXXA Exposure to other specified factors, initial encounter; F17.210 Nicotine dependence, cigarettes, uncomplicated
CPT/HCPCS: 99213; G0463

== ENCOUNTER 2023-12-16 19:32 | Emergency (ER) | payer OTHER, SELFPAY ==
[2023-12-16] VITALS (8 sets, daily range): BP systolic 114–152; BP diastolic 84–88; PULSE 70–85; RESP 13–20; TEMP 36.4; O2SAT 98–100
--- NOTE | 2023-12-16 19:47 | PC.NURSE ---
1946-WHILE DURING TRIAGE PROCESS, PATIENT DENIED SUICIDAL IDEATION BUT WHEN QUESTIONED ABOUT THE [place] SCALE, PATIENT CHARTED OUT A HIGH RISK. NYASIA SARABIA CAME IN AND SPOKE TO PATIENT AND THEN PATIENT DENIED SUICIDAL IDEATION. PATIENT IS INTERMITTENTLY TEARFUL.
--- NOTE | 2023-12-16 19:55 | ECG_ITS ---
Test Date: 2023-12-16 19:41:34 Measurements Intervals [place] Rate: 72 P: 11 AL: 116 QRS: 45 QRSD: 81 T: 44 QT: 372 QTc: 410 Interpretive Statements SINUS RHYTHM WITH SHORT AL INTERVAL RSR' IN V1 OR V2, PROBABLY NORMAL VARIANT BASELINE ARTIFACT- I, II, III, AVR, AVL, AVF BORDERLINE ECG No previous ECG available for comparison Electronically Signed On 12-17-2023 07:10:56 CDT by Aron Ramirez D.O.
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
--- NOTE | 2023-12-16 20:04 | PC.NURSE ---
pt told this rn that she did not have to stay and was not under arrest so she was leaving. This rn notified ayanna lopez of that conversation.
--- NOTE | 2023-12-16 20:25 | PC.NURSE ---
pt refusing to have blood work drawn and walked out of er again. OWEN lopez made aware.
== END 2023-12-16 20:29 | disposition left against medical advice (07) ==
PROVIDERS: Emergency Provider Emergency Medicine
DX: T40.411A Poisoning by fentanyl or fentanyl analogs, accidental (unintentional), initial encounter (principal); F17.210 Nicotine dependence, cigarettes, uncomplicated; Z86.19 Personal history of other infectious and parasitic diseases; Z62.810 Personal history of physical and sexual abuse in childhood; Z91.51 Personal history of suicidal behavior; R94.31 Abnormal electrocardiogram [ECG] [EKG]
CPT/HCPCS: 93005; 99284

== ENCOUNTER 2024-01-08 02:47 | Emergency (ER) | payer OTHER, SELFPAY ==
[2024-01-08 02:50] VITALS: BP 112/87; PULSE 65; RESP 17; TEMP 36.9; O2SAT 100
[2024-01-08 02:52] VITALS: RESP 17
--- NOTE | 2024-01-08 02:52 | ECG_ITS ---
Test Date: 2024-01-08 02:52:22 Measurements Intervals [place] Rate: 63 P: 58 SD: 121 QRS: 63 QRSD: 78 T: 49 QT: 378 QTc: 389 Interpretive Statements SINUS RHYTHM NORMAL ELECTROCARDIOGRAM Compared to ECG 12/16/2023 19:41:34 NO SIGNIFICANT CHANGE Electronically Signed On 01-08-2024 09:04:26 CDT by Pipo Restrepo M.D.
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
[2024-01-08 02:57] VITALS: PULSE 65; O2SAT 100
--- NOTE | 2024-01-08 03:08 | PC.NURSE ---
Phlebotomy contacted at this time to obtain blood orders. Pt blood orders attempted x3 times by behavioral services tech and ER nurse.
[2024-01-08 03:47] LABS: Acetaminophen < 10 ug/mL (10-30); Ethanol < 10 mg/dL (<10); Salicylate < 1.0 mg/dL (2-20)
[2024-01-08 03:48] LABS: Alanine Aminotransferase 14 U/L (6-35); Alkaline Phosphatase 74 U/L (38-126); Anion Gap 9 mmol/L (4-12); Aspartate Amino Transferase 23 U/L (14-36); Bilirubin,Total 0.4 mg/dL (0.2-1.3); Blood Urea Nitrogen 16 mg/dL (7-17); Calcium 9.2 mg/dL (8.4-10.2); Carbon Dioxide 26 mmol/L (22-30); Chloride 102 mmol/L (98-107); Estimated CRCL calculation 70 ml/min; Estimated Glomerular Filt Rate > 60; Glucose 123 mg/dL (65-110); Potassium 3.8 mmol/L (3.4-5.0); Sodium 137 mmol/L (137-145)
[2024-01-08 04:00] LABS: SARS-CoV-2 RNA PCR Negative (Negative)
[2024-01-08 04:16] LABS: Thyroid Stimulating Hormone 0.757 uIU/mL (0.465-4.680)
[2024-01-08 04:26] LABS: Add Urine Microscopic? NO; Appearance Urine Clear (Clear); Bilirubin Urine Negative (Negative); Blood Urine Negative (Negative); Color Urine Yellow (Yellow); Glucose Urine UA Negative (Negative); Ketones Urine Negative (Negative); Leukocyte Esterase Ur Negative LEU/UL (Negative); Nitrate Urine Negative (Negative); Protein Urine Negative (Negative); Specific Grav Ur 1.027 (1.001-1.035)
[2024-01-08 04:41] LABS: Barbiturate Screen Urine Negative (Negative)
[2024-01-08 04:49] LABS: Cannabinoid Screen Urine Positive (Negative); Cocaine Screen Urine Negative (Negative); Methadone Screen Urine Negative (Negative); Opiate Screen Urine Negative (Negative); Phencyclidine Screen Urine Negative (Negative)
--- NOTE | 2024-01-08 04:50 | PC.NURSE ---
Phlebotomy contacted to get redraw from rejected labs. Protective Services Social Worker states it may be awhile I have morning rounds . ER charge updated.
[2024-01-08 05:20] LABS: Amphetamine Screen Urine Positive (Negative)
[2024-01-08 05:46] LABS: Basophils Percent Auto 0.6 % (0.2-1.2); Eosinophils Absolute Auto 0.3 K/mm3 (0-0.3); Eosinophils Percent Auto 5.8 % (0-4.4); Hematocrit 34.6 % (37.0-47.0); Hemoglobin 11.3 g/dL (12.0-15.0); Immature Granulocyte Absolute 0.01 K/mm3 (0.00-0.031); Immature Granulocyte Percent A 0.2 % (0-0.5); Lymphocytes Absolute Auto 1.19 K/mm3 (0.9-3.2); Lymphocytes Percent Auto 23.9 % (18.3-44.2); Mean Corpuscular HGB Conc 32.7 g/dl (32-36); Mean Corpuscular Hemoglobin 28.5 pg (26-34); Mean Corpuscular Volume 87.4 fl (80-100); Mean Platelet Volume 9.5 fl (7.4-10.4); Monocytes Absolute Auto 0.3 K/mm3 (0.1-0.6); Monocytes Percent Auto 6.8 % (2.6-8.5); Neutrophils Absolute Auto 3.1 K/mm3 (1.3-6.7); Neutrophils Percent Auto 62.7 % (45.5-73.1); Platelet Count Result 171 k/mm3 (150-375); Red Blood Count 3.96 M/mm3 (4.2-5.4); Red Cell Distribution Width 13.1 % (11.5-14.5)
--- NOTE | 2024-01-08 05:57 | PC.NURSE ---
Pt medically cleared per EDP Dr. Hector to be evaluated by Crisis.
[2024-01-08 06:03] LABS: BEDSIDEPREGUCG Negative
[2024-01-08 06:09] LABS: Benzodiazepines Screen Urine Negative (Negative)
--- NOTE | 2024-01-08 06:43 | PC.NURSE ---
Report given to MANDY Trevizo at this time.
== END 2024-01-08 09:00 | disposition home or self-care (01) ==
LOC: ANHED 03:09
PROVIDERS: Emergency Provider Emergency Medicine
DX: F19.10 Other psychoactive substance abuse, uncomplicated (principal); R45.851 Suicidal ideations; F17.210 Nicotine dependence, cigarettes, uncomplicated; Z20.822 Contact with and (suspected) exposure to COVID-19
CPT/HCPCS: 36415; 80053; 80307; 81003; 81025; 84443; 85025; 87635; 93005; 99284

== ENCOUNTER 2025-01-06 02:39 | Emergency (ER) | payer OTHER, SELFPAY ==
[2025-01-06 02:40] VITALS: BP 131/87; PULSE 87; RESP 18; TEMP 36.6; O2SAT 99
--- OUTSIDE RECORDS SUMMARY | 2025-01-06 02:41 | XMS_ITS | Patient Health Record ---
Author Organization [facility] Address [address] [place] [address] Care Team Providers Care Floor Winder Name Role Phone Greta Nath Primary Care Provider Joshua Shane Unavailable [phone] Allergies No Known Allergies Results Component Value Reference Range Notes 12 Panel Urine Drug Screen Reviewed date:06/01/2024 01:32:05 PM Interpretation: Performing Lab: Notes/Report: THC POS TIARA neg MOP (OPI) neg AMP POS MET POS BAR neg BZO neg MDMA neg MTD neg OXY neg PCP neg BUP neg Test, Urine Reviewed date:06/01/2024 01:42:49 PM Interpretation:Negative Performing Lab: Notes/Report: Negative Test, Urine neg Negative - Negative Reason For Referral No Information Medications Medication SIG (Take, Route, Frequency, Duration) Notes Start Date End Date Status Abilify 10 MG 1 tablet (for the first 4 days take half tab) Orally Once a day; Duration: 30 days 11/12/2022 Not-Taking Buprenorphine HCl-Naloxone HCl 8-2 MG 1 film under the tongue and allow to dissolve Sublingual up to three times daily 06/01/2024 Active Sertraline HCl 50 MG 1 tablet Orally Once a day; Duration: 30 days 11/12/2022 Not-Taking traZODone HCl 100 MG 1 tablet at bedtime Orally Once a day; Duration: 30 days Takes 200 BID Not-Taking Ziprasidone HCl 40 MG 1 capsule with juan pablo d Orally Twice a day; Duration: 30 days 10/06/2021 Not-Taking hydrOXYzine Pamoate 25 MG 1-2 caps Orally every 4 hrs as needed for anxiety/sleep; Duration: 30 days Not-Taking Prazosin HCl 1 MG 1 capsule at bedtime Orally Once a day; Duration: 30 day(s) 10/06/2021 Not-Taking cloNIDine HCl 0.1 MG 1 tablet Orally Once a day; Duration: 30 day(s) 11/12/2022 Not-Taking traZODone HCl 100 MG 1 tablet at bedtime Orally Once a day; Duration: 30 day(s) 11/12/2022 Not-Taking Social History Tobacco Use: Social History Observation Description Date Details (start date - stop date) Current Smoker NA - NA Sex Assigned At : Social History Observation Description Sex Assigned At Female Dont use, Tobacco Use/Smoking Question Answer Notes Are you a current smoker How often do you smoke cigarettes? every day How many cigarettes a day do you smoke? 31 or mo re How soon after you wake up do you smoke your fir st cigarette? within 5 minutes Are you interested in quitting? Not ready to germain t Tobacco Control (Standard) Question Answer Notes Tobacco use: Current every day smoker Additional Findings: Tobacco user Moderate cigar ette smoker (10-19 cigs/day) Problems Problem Type SNOMED Code ICD Code Onset Dates Problem Status W/U Status Risk Notes Problem Tobacco user (948113908) Nicotine dependence, unspecified, uncomplicated (F17.200) Active confirmed Problem Posttraumatic stress disorder (44748685) PTSD (post-traumatic stress disorder) (F43.10) Active confirmed Problem Methamphetamine abuse (943525240) Methamphetamine abuse (F15.10) Active confirmed Problem Tobacco use (387825545) Tobacco use disorder (F17.200) Active confirmed Problem Opioid dependence (49034222) Opioid use disorder, severe, dependence (F11.20) Active confirmed Problem Bipolar disorder (67489931) Bipolar I disorder with anxious distress (F31.9) Active confirmed Problem Opioid use disorder (3975800255) Opioid use disorder (F11.90) Active confirmed Vital Signs Heart Rate 85 /min 06/01/2024 Respiratory Rate 18 /min 06/01/2024 Oximetry 97 % 06/01/2024 Blood pressure diastolic 74 mm Hg 06/01/2024 Height 62 in 06/01/2024 Blood pressure systolic 120 mm Hg 06/01/2024 Weight 115 lbs 06/01/2024 BMI 21.03 kg/m2 06/01/2024 Encounters Encounter Location Date Provider Diagnosis [facility] [address] [place] [address] 06/01/2024 Joshua Shane Opioid use disorder F11.90 and Nicotine dependence, unspecified, uncomplicated F17.200 Assessments Encounter Date Diagnosis (ICD Code) Assessment Notes Treatment Notes Treatment Clinical Notes Section Notes 06/01/2024 Nicotine dependence, unspecified, uncomplicated (ICD-10 - F17.200) 06/01/2024 Opioid use disorder (ICD-10 - F11.90) 06/01/2024 Other Potential side effects of buprenorphine discussed, as well as taking buprenorphine as prescribed. Dangers of using other controlled substances (prescribed or illegal/including benzodiazepines) with buprenorphine discussed. Patient understands taking other narcotics with buprenorphine could lead to respiratory distress and even . Patient understands that ALL treating providers/physici ans should be informed of buprenorphine use as part of a Medication Assisted Treatment program Plan Of Treatment Future Test Test Name Order Date CBC With Differential/Platelet* 10/07/19 22 TSH+Free T4* 10/06/2021 CMP 14 Comprehensive Metabolic Panel* Insurance Providers Payer Name Payer Address Payer Phone Subscriber Number Group Number Insured Name Patient Relationship to Insured Coverage Start Date Coverage End Date [facility] Att Claims Department [address] [place] [phone] [id number] Jacey Queen Self - patient is the insured 1 [place] [facility] Att[facility] Claims Department [address] [place] [address] [id number] Jacey Queen Self - patient is the insured 1 Medical (General) History Medical History History ICD Code Anxiety PTSD Depression Chronic Hepatitis C Opioid Use Disorder-heroin/ice Hx of IVDA Tobacco Use Disorder Hx of Multiple Drug Overdose Surgical History Surgery Date(Month/Year) C-Sections x4 Hospitalization History Reason Date(Month/Year) As Above for CSections
--- OUTSIDE RECORDS SUMMARY | 2025-01-06 02:41 | XMS_ITS | Referral Summary ---
Author Organization [facility] Address [address] [place] [address] Care Team Providers Care Cs Associate Name Role Phone No, Physician Primary Care Provider [phone] Encounters Date Type Department Care Team Description 12/27/2024 6:33 AM CDT - 12/27/2024 9:47 AM CDT Emergency [address] [address] Fidel De Anda DO Accidental drug overdose, initial encounter (Primary Dx); Polysubstance abuse (HCC) Discharge Disposition: Discharge to home or self care from Last 3 Months Allergies Active Allergy Reactions Criticality Noted Date Comments Morphine Rash Medium 11/30/2020 Medications No known medications Active Problems Problem Noted Date Diagnosed Date 37 weeks gestation of 01/10/2021 Anemia in , delivered, current hospital ization 01/10/2021 Bedbug bite 01/10/2021 Excessive and frequent menstruation with regular cycle 01/10/2021 Painful micturition 01/10/2021 Postprandial vomiting 01/10/2021 Previous , delivered, current hospitaliz ation 01/10/2021 Single live 01/10/2021 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 Substance abuse 12/17/2020 Chronic hepatitis C without hepatic coma ([facility]/HC C) 11/17/2020 Amphetamine use disorder, severe, dependence Heroin use disorder, moderate, dependence 2019 Methamphetamine abuse (CMS/HCC) 07/22/2019 Cannabis abuse 07/22/2019 Narcotic abuse, continuous (CMS/HCC) 07/22/2019 Hanging, initial encounter 12/18/2017 Headache 12/18/2017 Posterior neck pain 12/18/2017 Suicide attempt by hanging 12/18/2017 Traumatic ecchymosis of neck 12/18/2017 Social History Tobacco Use Types Packs/Day Years Used Date Smoking Tobacco: Every Day Cigarettes Tobacco Cessation:Ready to Q uit: Not Asked; Counseling Given: Not Answered Alcohol Use Standard Drinks/Week Comments Never 0 (1 standard drink = 0.6 oz pur e alcohol) AUDIT-C Answer Date Recorded Frequency of Alcohol Consumption Never 08/21/2018 Average Number of Drinks Not on file 019 Frequency of Binge Drinking Not on file 08/04 Personal Safety Answer Date Recorded Have you ever been in or are you currently in a harmful physical or emotional relationship or is someone making you feel afraid or unsafe? Denies 12/27/2024 Comments Unknown Sex and Gender Information Value Date Recorded Sex Assigned at Not on file Legal Sex Female 3:07 AM CDT Gender Identity Not on file Sexual Orientation Not on file Last Filed Vital Signs Vital Sign Reading Time Taken Comments Blood Pressure 103/72 12/27/2024 9:40 AM CDT Pulse 68 12/27/2024 9:40 AM CDT Temperature 36.4 C (97.6 F) 12/27/2024 6:41 AM CDT Respiratory Rate 16 12/27/2024 8:00 AM CDT Oxygen Saturation 99% 12/27/2024 9:40 AM CDT Inhaled Oxygen Concentration - - Weight 53 kg (116 lb 13.5 oz) 12/27/2024 7:01 A M CDT Height 157.5 cm (5' 2) 12/27/2024 7:01 AM CDT Body Mass Index 21.37 12/27/2024 7:01 AM CDT Plan of Treatment Not on file Procedures Procedure Name Priority Date/Time Associated Diagnosis Comments [place] INCISION & DRAINAGE ABSCESS SIMPLE/SINGLE Routine 12/27/2024 2:32 PM CDT POCT HCG, URINE Routine 12/27/2024 8:58 AM CDT TROPONIN T HIGH-SENSITIVITY 2-HOUR Timed 12/27/2024 8:56 AM CDT URINALYSIS, MICROSCOPIC ONLY STAT 12/27/2024 8:36 AM CDT DRUGS OF ABUSE SCREEN, URINE WITHOUT CONFIRMATION STAT 12/27/2024 8:36 AM CDT URINALYSIS AND REFLEX TO MICROSCOPIC AND CULTURE STAT 12/27/2024 8:36 AM CDT COVID-19 CORONAVIRUS RNA STAT 12/27/2024 7:02 AM CDT SALICYLATE LEVEL STAT 12/27/2024 6:48 AM CDT TSH STAT 12/27/2024 6:48 AM CDT EGFR STAT 12/27/2024 6:48 AM CDT ETHANOL STAT 12/27/2024 6:48 AM CDT ACETAMINOPHEN LEVEL STAT 12/27/2024 6 :48 AM CDT DIFFERENTIAL AUTO STAT 12/27/2024 6:4 8 AM CDT TROPONIN T HIGH-SENSITIVITY SERIES (BASELINE, 2HR, 4HR, 6HR) STAT 12/27/2024 6:48 AM CDT COMPREHENSIVE METABOLIC PANEL STAT 12/27/2024 6:48 AM CDT CBC WITH AUTO DIFFERENTIAL STAT 12/27/2024 6:48 AM CDT ECG 12-LEAD Routine 12/27/2024 6:35 AM CDT HEPATITIS C RNA, QUANTITATIVE, NAAT Routine 10/04/2020 9:52 PM CDT from Last 3 Months or Most Recently Relevant to Health Maintenance Results * [place] INCISION & DRAINAGE ABSCESS SIMPLE/SINGLE (12/27/2024 2:32 PM CDT) Narrative Fidel De Anda DO - 12/27/2024 2:32 PM CDT Fidel De Anda DO 12/27/2024 2:33 PM Incision and Drainage Date/Time: 12/27/2024 2:32 PM Performed by: Fidel De Anda DO Authorized by: Fidel De Anda DO RN Notified of Procedure: yes Type: Abscess Location: Lower extremity Lower extremity location: R ankle Skin preparation: Chloraprep Anesthesia method: None Needle aspiration: no Incision types: Stab incision Incision depth: Subcutaneous Scalpel size: used 20 guage needle. Drainage: Bloody and purulent Drainage amount: Scant Wound treatment: Wound left open Packing materials: None Patient tolerance of procedure: Tolerated well, no immediate complications Fidel De Anda DO IN CLINIC/BEDSIDE ORDERABLES F inal Result * POCT hCG, urine (12/27/2024 8:58 AM CDT) HCG, ur, POC Negative Negative Lot Number [id number] QC Backgroud Clear Acceptable QC Control Line Acceptable Urine 12/27/2024 8:58 AM CDT Result [facility] Fidel De Anda DO POINT OF CARE TEST ORDERABLES Final Result * Troponin T high-sensitivity 2-hour (12/27/2024 8:56 AM CDT) Trop T hs <6 <=14 ng/L Comment: Interpretive Data For further hscTnT resources including the diagnostic algorithm and an aid in interpretation, copy and paste this link: https://nrl.testcatalog.org/show/hsTrop Current Interpretive Data last revised 2020. Trop T hs delta 0 ng/L [facility] Trop T hs interp Insignificant [facility] Blood 12/27/2024 8:56 AM CDT 12/27/2024 8:58 AM CDT Fidel De Anda DO LAB BLOOD ORDERABLES Final Res ult [facility] [address] [facility] Department [place] [address] * (ABNORMAL) Urinalysis reflex to microscopic and culture Urine (12/27/2024 8:36 AM CDT) Color, ur Yellow Yellow Clarity, ur Clear Clear [facility] Specific gravity, ur 1.019 1.003 - 1.030 [facility] pH, urine 6.0 [facility] Comment: Interpretive Data U rine pH is affected by diet, medications, systemic acid-base disturbances, and renal tubular function. pH may affect urinary stone formation. For example, urine pH below 6.0 may help reduce the tendency for calcium phosphate stones and pH greater than 6.0 may reduce the tendency for uric acid stone formation. Source: [facility] Current Interpretive Data was last revised on 2017 Protein, ur ql Negative Negative [facility] Glucose, ur ql Negative Negative [facility] Ketones, ur Trace Negative [facility] Bilirubin, ur Negative Negative [facility] Blood, ur Negative Negative [facility] Urobilinogen, ur 2.0(A) <2.0 mg/dL [facility] Nitrite, ur Negative Negative [facility] Leukocyte esterase, ur 2+(A) Negative [facility] UA reflex comment Reflex to microscopic UA will be performed. [facility] Urine 12/27/2024 8:36 AM CDT 12/27/2024 8:40 AM CDT Fidel De Anda DO LAB MICROBIOLOGY - GENERAL ORD ERABLES Final Result [facility] [address] [facility] Department [place] [address] * (ABNORMAL) Drugs of Abuse Screen, Urine without Confirmation (12/27/2024 8:36 AM CDT) Amphetamine, ur Screen Positive, presumptive (A) CutOff 500ng/mL Comment: Interpretive Data - Amphetamines: Samples containing greater than 500 ng/mL d-methamphetamine or other cross-reacting amphetamine compounds are reported as positive. Amphetamine immunoassays are subject to significant false positive rates due to cross-reactivity of non-amphetamine drugs. Confirmatory testing required for definitive results. Current Interpretive Data was last reviewed 2023. Barbiturates, ur Not Detected CutOff 200ng/mL [facility] Comment: Interpretive Data - Barbiturates: Samples containing greater than 200 ng/mL secobarbital or other cross-reacting barbiturate compounds are reported as positive. False positive and false negative results are possible. Confirmatory testing required for definitive results. Current Interpretive Data was last reviewed 2023. Benzodiazepines, ur Screen Positive, presumptive (A) CutOff 100ng/mL [facility] Comment: Interpretive Data - Benzodiazepines: Samples containing greater than 100 ng/mL nordiazepam or other cross-reacting compounds are reported as positive. False positive and false negative results are possible. Confirmatory testing required for definitive results. Current Interpretive Data was last reviewed 2023. Cannabinoids, ur Screen Positive, presumptive (A) CutOff 50 ng/mL [facility] Comment: Interpretive Data - Cannabinoids: Samples containing greater than 50 ng/mL delta-9 THC -COOH or other cross- reacting compounds are reported as positive. False positive and false negative results are possible. Confirmatory testing required for definitive results. Current Interpretive Data was last reviewed 2023. Cocaine, ur Screen Positive, presumptive (A) CutOff 150ng/mL [facility] Comment: Interpretive Data - Cocaine: Samples containing greater than 150 ng/mL benzoylecgonine or other cross- reacting compounds are reported as positive. False positive and false negative results are possible. Confirmatory testing required for definitive results. Current Interpretive Data was last reviewed 2023. Fentanyl, Ur Screen Positive, presumptive (A) CutOff 5 ng/mL [facility] Comment: Interpretive Data - Fentanyl: Samples containing greater than 5 ng/mL norfentanyl, fentanyl, or other cross-reacting fentanyl compounds are reported as positive. False positive and false negative results are possible. Confirmatory testing required for definitive results. Current Interpretive Data was last reviewed 2023. Methadone, ur Not Detected CutOff 300ng/mL [facility] Comment: Interpretive Data - Methadone: Samples containing greater than 300 ng/mL d,l-methadone or other cross-reacting compounds are reported as positive. False positive and false negative results are possible. Confirmatory testing required for definitive results. Current Interpretive Data was last reviewed 2023. Opiates, ur Not Detected CutOff 300ng/mL [facility] Comment: Interpretive Data - Opiates: Samples containing greater than 300 ng/mL morphine or other cross-reacting compounds are reported as positive. False positive and false negative results are possible. Confirmatory testing required for definitive results. Current Interpretive Data was last reviewed 2023. Oxycodone, ur Not Detected CutOff 100ng/mL [facility] Comment: Interpretive Data - Oxycodone: Samples containing greater than 100 ng/mL oxycodone or other cross-reacting compounds are reported as positive. False positive and false negative results are possible. Confirmatory testing required for definitive results. Current Interpretive Data was last reviewed 2023. Phencyclidine, ur Not Detected CutOff 25 ng/mL [facility] Comment: Interpretive Data - Phencyclidine: Samples containing greater than 25 ng/mL phencyclidine or other cross-reacting compounds are reported as positive. False positive and false negative results are possible. Confirmatory testing required for definitive results. Current Interpretive Data was last reviewed 2023. Urine Creatinine 181 mg/dL [facility] Comment: Interpretive Data Urine Creatinine: < 10 mg/dL is extremely dilute = or > 10 but < 20 mg/dL is dilute = or > 20 mg/dL is normal Current Interpretive Data was last revised on 2017. Urine 12/27/2024 8:36 AM CDT 12/27/2024 8:40 AM CDT Narrative [facility] - 12/27/2024 9:08 AM CDT Drug of Abuse screening is performed by immunoassay for medical purposes only. This is not to be used for Pain Management purposes. Fidel De Anda DO LAB URINE ORDERABLES Final Res ult [facility] [address] [facility] Department [place] [address] * (ABNORMAL) Urinalysis, microscopic only (12/27/2024 8:36 AM CDT) WBC, ur 6-10(A) 0 - 5 /HPF RBC, ur 0-2 0 - 2 /HPF [facility] Epithelial cells, squamous, ur 1-5 0 - 5 /HPF [facility] Mucous, ur Present(A) [facility] Hyaline casts, ur 1-5 0 - 10 /LPF [facility] Culture Reflex Comment Reflex conditions for urine culture (WBC >10) not met. [facility] Urine 12/27/2024 8:36 AM CDT 12/27/2024 8:40 AM CDT Fidel De Anda DO LAB URINE ORDERABLES Final Res ult [facility] [address] [facility] Department [place] [address] * COVID-19 Coronavirus RNA Nasopharyngeal (12/27/2024 7:02 AM CDT) COVID-19 RNA Negative Negative Nasopharyngeal 12/27/2024 7: 02 AM CDT 12/27/2024 7:07 AM CDT Narrative [facility] - 12/27/2024 7:41 AM CDT Is the patient experiencing any symptoms consistent with COVID (eg. Fever, cough, shortness of breath)?->Unsure due to altered mental status What is the reason for testing?->Screening prior to Behavioral health admission Interpretive data Testing performed by [facility]. This test is performed using the [employer]ite Xpert Xpress CoV-2 plus assay. This is a real-time RT-PCR test intended for the qualitative detection of nucleic acid from the SARS-CoV-2. This assay has been cleared by the [place] Food and Drug administration. The performance characteristics have been verified by the [facility]. Results must be considered in the clinical context, and a negative result does not rule out infection. Interpretive data last revised 2023. Interpretive data Testing performed by [facility]. This test is performed using the [employer] Xpert Xpress CoV-2 plus assay. This is a real-time RT-PCR test intended for the qualitative detection of nucleic acid from the SARS-CoV-2. This assay has been cleared by the [place] Food and Drug administration. The performance characteristics have been verified by the [facility]. Results must be considered in the clinical context, and a negative result does not rule out infection. Interpretive data last revised 2023. [facility]idel [employer] LAB MICROBIOLOGY - GENERAL ORD ERABLES Final Result Performing Organization Address City/[facility]/ZIP Co de Phone Number [facility] [address] [address] * Troponin T high-sensitivity series (baseline, 2hr, 4hr, 6hr) (12/27/2024 6:48 AM CDT) Trop T hs <6 <=14 ng/L Comment: Interpretive Data For further hscTnT resources including the diagnostic algorithm and an aid in interpretation, copy and paste this link: https://nrl.testcatalog.org/show/hsTrop Current Interpretive Data last revised 2020. Blood 12/27/2024 6:48 AM CDT 12/27/2024 6:55 AM CDT [employer] [employer] LAB BLOOD ORDERABLES Final Res ult Performing Organization Address [facility] Co de Phone Number [facility] [address] [address] * eGFR (12/27/2024 6:48 AM CDT) Pathologist [facility] eGFR >90 >=60 mL/min/1. 73 m2 Comment: Interpretive Data Reference Interval Normal >/= 90 mL/min/1.73m2 Mildly decreased* 60 - 89 mL/min/1.73m2 Mildly to moderately decreased 45 - 59 mL/min/1.73m2 Moderately to severely decreased 30 - 44 mL/min/1.73m2 Severely decreased 15 - 29 mL/min/1.73m2 Kidney Failure < 15 mL/min/1.73m2 *Relative to young adult level Estimated glomerular filtration rate is determined by the 2020 CKD-EPI equation recommended by the National Kidney Foundation (A Unifying Approach to GFR Estimation: Recommendations of the NKF-ASK Task Force on Reassessing the Inclusion of Race in Diagnosing Kidney Disease, JASN 2020). The CKD-EPI equation should not be used for patients with unstable renal function and has not been validated in children and those over 70. Current interpretive data was last reviewed 2021. Blood 12/27/2024 6:48 AM CDT 12/27/2024 6:55 AM CDT us Fidel Adilson ARAUJO LAB BLOOD ORDERABLES Final Res ult [facility] [address] [facility] Department [place] [address] * Differential, auto (12/27/2024 6:48 AM CDT) Neutrophil abs 2.54 1.50 - 6.50 K/cumm Imm gran abs 0.01 0.00 - 0.10 K/cumm [facility] Lymphocyte abs 0.96 0.80 - 3.30 K/cumm [facility] Monocyte abs 0.35 0.20 - 0.80 K/cumm [facility] Eosinophil abs 0.09 0.00 - 0.50 K/cumm [facility] Basophil abs 0.02 0.00 - 0.10 K/cumm [facility] Neutrophil pct 63.9 % [facility] Comment: Interpretive Data Percent cell count reference ranges are not reported, since discordance with absolute values may lead to misinterpretation of CBC data. Current Interpretive Data was last revised on 2017. Imm gran pct 0.3 % [facility] Comment: Interpretive Data Percent cell count reference ranges are not reported, since discordance with absolute values may lead to misinterpretation of CBC data. Current Interpretive Data was last revised on 2017. Lymphocyte pct 24.2 % [facility] Comment: Interpretive Data Percent cell count reference ranges are not reported, since discordance with absolute values may lead to misinterpretation of CBC data. Current Interpretive Data was last revised on 2017. Monocyte pct 8.8 % [facility] Comment: Interpretive Data Percent cell count reference ranges are not reported, since discordance with absolute values may lead to misinterpretation of CBC data. Current Interpretive Data was last revised on 2017. Eosinophil pct 2.3 % [facility] Comment: Interpretive Data Percent cell count reference ranges are not reported, since discordance with absolute values may lead to misinterpretation of CBC data. Current Interpretive Data was last revised on 2017. Basophil pct 0.5 % [facility] Comment: Interpretive Data Percent cell count reference ranges are not reported, since discordance with absolute values may lead to misinterpretation of CBC data. Current Interpretive Data was last revised on 2017. Blood 12/27/2024 6:48 AM CDT 12/27/2024 6:55 AM CDT Fidel De Anda DO LAB BLOOD ORDERABLES Final Res ult Performing Organization Address City/[facility]/ZIP Co de Phone Number [facility] [address] [employer] [place], [place] [id number] * (ABNORMAL) CBC with auto differential (12/27/2024 6:48 AM CDT) WBC 3.97 3.80 - 9.90 K/cumm Hgb 10.6(L) 11.9 - 15.5 g/dL [facility] Hct 32.0(L) 35.6 - 45.5 % [facility] Plt 176 150 - 400 K/cumm [facility] MPV 10.1 9.1 - 12.3 fL [facility] RBC 3.54(L) 3.90 - 5.20 M/cumm [facility] MCV 90.4 81.3 - 96.4 fL [facility] MCH 29.9 27.1 - 33.3 pg [facility] MCHC 33.1 32.3 - 35.7 g/dL [facility] RDW CV 14.2 11.1 - 14.9 % [facility] RDW SD 47.2 35.7 - 48.1 fL [facility] NRBC abs 0.00 0.00 - 0.01 K/cumm [facility] Blood 12/27/2024 6:48 AM CDT 12/27/2024 6:55 AM CDT Fidel De Anda DO LAB BLOOD ORDERABLES Final Res ult Performing Organization Address City/[facility]/ZIP Co de Phone Number [facility] [address] [address] * TSH (12/27/2024 6:48 AM CDT) Thyroid Stimulating Hormone 3.42 0.30 - 4.20 mcIUnit/mL Blood 12/27/2024 6:48 AM CDT 12/27/2024 6:55 AM CDT Fidel De Anda LAB BLOOD ORDERABLES Final Res ult Performing Organization Address [facility] de Phone Number [facility] [address] [address] * Ethanol (12/27/2024 6:48 AM CDT) Pathologist [facility] Ethanol <10 <=10 mg/dL Comment: Interpretive Data Legal limit of intoxication > or = 80 mg/dL Levels > or = 400 mg/dL are potentially TOXIC. Current interpretive data was last revised on 2018. Blood 12/27/2024 6:48 AM CDT 12/27/2024 6:55 AM CDT Fidel De Anda DO LAB BLOOD ORDERABLES Final Res ult Performing Organization Address [facility] de Phone Number [facility] [address] [address] * Acetaminophen level (12/27/2024 6:48 AM CDT) Acetaminophen <5 <=5 mcg/mL Comment: Interpretive Data Significant hepatic injury may occur and treatment with n-acetyl cysteine is generally recommended if the acetaminophen level exceeds: 150 mcg/mL at 4 hours after ingestion 75 mcg/mL at 8 hours after ingestion 38 mcg/mL at 12 hours after ingestion 19 mcg/mL at 16 hours after ingestion Consult toxicology or poison control ([phone]) for unknown ingestion time. Current interpretive data was last revised 2023. Blood 12/27/2024 6:48 AM CDT 12/27/2024 6:55 AM CDT Fidel [employer]Co DO LAB BLOOD ORDERABLES Final Res ult Performing Organization Address City/[facility] Co de Phone Number [facility] [address] [address] * Salicylate level (12/27/2024 6:48 AM CDT) Salicylate <1.0 <=1.0 mg/dL Comment: Interpretive Data Toxic: 30 mg/dL or greater. Current interpretive data was last revised 2023. Blood 12/27/2024 6:48 AM CDT 12/27/2024 6:55 AM CDT Fidel Good[employer]Co DO LAB BLOOD ORDERABLES Final Res ult Performing Organization Address [facility] de Phone Number [facility] [address] [address] * (ABNORMAL) Comprehensive metabolic panel (12/27/2024 6:48 AM CDT) Sodium 142 135 - 145 mmol/L Potassium, pl 3.0(L) 3.3 - 4.9 mmol/L [facility] Chloride 106 97 - 110 mmol/L [facility] CO2 25 22 - 32 mmol/L [facility] Anion gap 11 2 - 15 mmol/L [facility] BUN 8 6 - 25 mg/dL [facility] Creatinine 0.74 0.60 - 1.10 mg/dL [facility] Glucose 97 70 - 199 mg/dL [facility] Comment: Interpretive Data Fasting glucose >/= 126 mg/dl is diagnostic for diabetes. Fasting is defined as no caloric intake for at least 8 hours. Fasting glucose between 100 mg/dl to 125 mg/dl is diagnostic of prediabetes. In a patient with classic symptoms of hyperglycemia or hyperglycemic crisis, a random glucose >/= 200 mg/dl is diagnostic for diabetes. In the absence of unequivocal hyperglycemia, results should be confirmed by repeat testing. The classification and Diagnosis of Diabetes Diabetes Care 202; 46: S19-S40. Current interpretive data was last revised 2022. Calcium 8.5 8.5 - 10.3 mg/dL [facility] Bilirubin, total 0.5 0.1 - 1.2 mg/dL [facility] Protein, pl 6.5 6.5 - 8.5 g/dL [facility] Albumin 4.0 3.5 - 5.0 g/dL [facility] Alk phos 82 40 - 130 Units/L [facility] ALT 16 7 - 45 Units/L [facility] AST 25 10 - 45 Units/L [facility] Blood 12/27/2024 6:48 AM CDT 12/27/2024 6:55 AM CDT Fidel De Anda DO LAB BLOOD ORDERABLES Final Res ult Performing Organization Address City/[facility] Co de Phone Number [facility] [address] [facility] Department [place] [address] * ECG 12 lead (12/27/2024 6:35 AM CDT) Pathologist [facility] Ventricular Rate EKG/Min 93 BPM [facility] Atrial Rate 93 BPM [facility] [place]-Interval (MSEC) 132 ms [facility] QRS-Interval (MSEC) 82 ms [facility] QT-Interval (MSEC) 394 ms [facility] QTc 489 ms [facility] P [place] 63 degrees [facility] R [place] 25 degrees [facility] T [place] 41 degrees [facility] Diagnosis Normal sinus rhythm Prolonged QT Confirmed by KB HERNANDEZ M.D. ([id number]) on 12/27/2024 4:31:29 PM [facility] 12/27/2024 6:35 AM CDT 12/27/2024 4:31 PM CDT Fidel De Anda DO ECG ORDERABLES Final Result Performing Organization Address [facility]/ZIP Co de Phone Number [facility] * (ABNORMAL) Hepatitis C RNA, Quantitative, NAAT (10/04/2020 9:52 PM CDT) HCV RNA IU/mL 2,207,18 9 [facility] HCV RNA log IU/mL 6.34 log IU/mL [facility] HCV quant by NAAT interp Detected (A) Not Detected [facility] Comment: INTERPRETIVE INFORMATION: HCV by Quantitative NAAT Normal range for this assay is Not Detected. The quantitative range of this assay is 10 - 100,000,000 IU/mL (1.0 - 8.0 log IU/mL). Lower limit of quantitation (LLoQ): 10 IU/mL (1.0 log IU/mL) LLoQ values do not apply to diluted specimens. A result of Not Detected does not rule out the presence of inhibitors in the patient specimen or hepatitis C virus RNA concentrations below the level of detection of the test. Care should be taken when interpreting any single viral load determination. This test should not be used for blood donor screening, associated re-entry protocols, or for screening Human Cell, Tissues and Cellular Tissue-Based Products (HCT/P). Performed By: [facility] [employer] [address] [place] [address] Director Fundraising: Rosa Bean MD, MS 10/04/2020 9:52 PM CDT 10/04/2020 9:56 PM CDT Narrative Resulting Agency Comment IN Jeremy Aguirre MD LAB BLOOD ORDERABLES Final Result [facility], [facility] [address] [place] [address], [facility] [phone] from Last 3 Months or Most Recently Relevant to Health Maintenance Insurance [facility] Advance Directives For more information, please contact: [phone] * Full Code (Latest Code Status on File) Date Activated Date Inactivated Comments 07/30/2019 1:49 PM 07/31/2019 7:14 PM Care Teams Cs Associate Relationship Specialty Start Date End Date No, Physician PCP - General 09/26/16
--- OUTSIDE RECORDS SUMMARY | 2025-01-06 02:42 | XMS_ITS | Clinical Summary ---
Author Organization [facility] [employer] Address [address] [place] [address] Care Team Providers Care Airframe Technical Officer Name Role Phone Unavailable Primary Care Provider Unavailabl e Source Comments [facility] [employer],non-owned Affiliates and Associated Physician Practices is amultiple site organization consisting of ambulatory clinics and hospital sitesin [place], [place], [place] and [place]. This disclosure is being madepursuant to the Care Everywhere program and may not contain all information available regarding this patient. Last updated 18.[facility] [employer] Allergies No known active allergies Medications * This document contains information received from the source organization and may not represent a complete record from that organization. * Be aware that medications may not be up to date on this document. Alwaysverify current medications with the patient. sulfamethoxazol e-trimethoprim (BACTRIM DS; SEPTRA DS) 800-160 MG tablet Take 1 (one) tablet by mouth every 12 hours 1 tablet 02/04/2021 Active nicotine (NICODERM CQ) 7 MG/24HR patch Apply 1 (one) patch to skin once daily Remove old patch before applying new patch. 7 patch 02/05/2021 Active Active Problems Problem Noted Date Diagnosed Date Depression 02/01/2021 Suicidal ideation 01/17/2021 Polysubstance abuse 01/17/2021 FELICIANO (acute kidney injury) 01/17/2021 Substance abuse 12/17/2020 Resolved Problems Problem Noted Date Diagnosed Date Resolved Date Suicidal ideation 12/17/2020 12/20/2020 Immunizations Immunization Administration Dates Next Due TDAP (7yrs+) 06/03/2020 Social History Tobacco Use Types Packs/Day Years Used Date Smoking Tobacco: Every Day Cigarettes Smokeless Tobacco: Never Tobacco Cessation:Ready to Q uit: Yes; Counseling Given: Yes Alcohol Use Standard Drinks/Week Comments Not Currently 0 (1 standard drink = 0.6 oz pur e alcohol) AUDIT-C Answer Date Recorded Q1: How often do you have a drink containing alcohol? Never 10/14/2021 Q2: How many drinks containi ng alcohol do you have on a typical day when you are drinking? Patient does not drink Q3: How often do you have si x or more drinks on one occasion? Never 10/14/2021 Comments No Sex and Gender Information Value Date Recorded Sex Assigned at Not on file Legal Sex Female 6:33 AM [employer] TE[employer] Gender Identity Not on file Sexual Orientation Not on file Last Filed Vital Signs Vital Sign Reading Time Taken Comments Blood Pressure 118/82 11/25/2023 9:04 AM CDT Pulse 77 11/25/2023 9:04 AM CDT Temperature 36.2 C (97.1 F) 11/25/2023 9:04 AM CDT Respiratory Rate 16 11/25/2023 9:04 AM CDT Oxygen Saturation 100% 11/25/2023 9:04 AM CDT Inhaled Oxygen Concentration - - Weight 52.2 kg (115 lb) 11/25/2023 4:34 AM CDT Height 157.5 cm (5' 2) 11/25/2023 4:34 AM CDT Body Mass Index 21.03 11/25/2023 4:34 AM CDT Plan of Treatment Health Maintenance Due Date Last Done Comments HEPATITIS C SCREENING 07/03/2003 HEPATITIS B VACCINE (1 of 3 - 19+ 3-dose series) 2004 PNEUMOCOCCAL VACCINE (1 of 2 - PCV) 2004 PAP SMEAR 2006 HPV VACCINE (1 - 3-dose SCDM series) 2012 COVID-19 VACCINE (1 - 2023-2 5 season) 2024 DEPRESSION SCREENING 06/06/2024 INFLUENZA VACCINE (#1) 2025 4, 06/20/2013 DTAP/TDAP/TD VACCINES (2 - T d or Tdap) 06/03/2030 06/03/2020 ZOSTER VACCINE (1 of 2) 2035 HIV SCREENING Completed 02/03/2021 HIB VACCINE Aged Out No longer eligi ble based on patient's age to complete this topic MENINGOCOCCAL (Group B) VACCINE SHARED DECISION-MAKING Aged Out No longer eligible based on patient's age to complete this topic MENINGOCOCCAL GROUPS A/C/Y/W VACCINE Aged Out No longer eligible b ased on patient's age to complete this topic Procedures Procedure Name Priority Date/Time Associated Diagnosis Comments HIV-1 HIV-2 ANTIBODY + HIV P24 AG PANEL Routine 02/03/2021 10:17 AM CDT from Last 3 Months or Most Recently Relevant to Health Maintenance Results * HIV-1 HIV-2 ANTIBODY + HIV P24 AG PANEL (02/03/2021 10:17 AM CDT) HIV Antigen/Antibod y 1 & 2 Non-reacti ve Non-react yasmani 02/03/2021 1:06 PM CDT [facility] Comment:Neither HIV-1 p24 An tigen nor HIV-1/HIV-2 Antibodies are detected. Blood BLOOD SPECIMEN / Unknown Venipuncture / Unknown 02/03/2021 10:17 AM CDT 02/03/2021 10:35 AM CDT us Shelley Landry MD LAB - CHEMISTRY ORDERABLES Fi nal Result [facility] [address] [place] [id number], [facility] [phone] from Last 3 Months or Most Recently Relevant to Health Maintenance Insurance [facility] MEDICAID - OUT OF STATE [facility] MEDICAID - OUT OF STATE [facility] Member Subscriber Plan / Payer (Ef fective 2020-Present) Name:Chris Queen Relation to Subscriber:Self Name:CHRIS QUEEN Payer ID:[id number] (NAIC) Group ID:Not on file Type:Medicaid Managed Care Address: [facility] CLAIMS DEPARTMENT [address] Advance Directives * Full Code (Latest Code Status on File) Date Activated Date Inactivated Comments 02/02/2021 3:10 PM 02/05/2021 11:52 AM * Full Code Date Activated Date Inactivated Comments 01/17/2021 8:21 PM 01/20/2021 1:55 PM * Full Code Date Activated Date Inactivated Comments 12/17/2020 3:20 PM 12/20/2020 3:02 PM
--- OUTSIDE RECORDS SUMMARY | 2025-01-06 02:42 | XMS_ITS | Clinical Summary ---
Author Organization [facility] Address [address] [place] [address] Care Team Providers Care Bullet Slugs Inspector Name Role Phone No, Physician Primary Care Provider [phone] Allergies Active Allergy Reactions Criticality Noted Date [...] 12/17/2020 Chronic hepatitis C without hepatic coma ([facility]/HC C) 11/17/2020 Amphetamine use disorder, severe, dependence Heroin use disorder, moderate, dependence 2019 Methamphetamine abuse (CMS/HCC) 07/22/2019 Cannabis abuse 07/22/2019 Narcotic abuse, continuous (CMS/HCC) 07/22/2019 Hanging, initial encounter 12/18/2017 Headache 12/18/2017 Posterior neck pain 12/18/2017 Suicide attempt by hanging 12/18/2017 Traumatic ecchymosis of neck 12/18/2017 Encounters Date Type Department Care Team Description 12/27/2024 6:33 AM CDT - 12/27/2024 9:47 AM CDT Emergency [address] [address] Fidel De Anda DO Accidental drug overdose, initial encounter (Primary Dx); Polysubstance abuse (HCC) Discharge Disposition: Discharge to home or self care from Last 3 Months Surgical History Surgery Date Site/Laterality Comments SECTION Medical History Medical History Date Comments Liver failure (HCC) Anxiety Depression Social History Tobacco Use Types Packs/Day Years [...] on file Sexual Orientation Not on file Obstetrics History Para Term AB IAB SAB Ectopic Multiple Livin g Live Births 1 Date Outcome GA Total Labor Labor/2nd/3rd Weight Sex Type Anes PTL Kelly A1 A5 Name Clin Last Filed Vital Signs Vital Sign Reading Time Taken Comments Blood Pressure 103/72 12/27/2024 9:40 AM CDT Pulse 68 12/27/2024 9:40 AM CDT Temperature 36.4 C (97.6 F) 12/27/2024 6:41 AM CDT Respiratory Rate 16 12/27/2024 8:00 AM CDT Oxygen Saturation 99% 12/27/2024 9:40 AM CDT Inhaled Oxygen Concentration - - Weight 53 kg (116 lb 13.5 oz) 12/27/2024 7:01 AM CDT Height 157.5 cm (5' 2) 12/27/2024 7:01 AM CDT Body Mass Index 21.37 12/27/2024 7:01 AM CDT Plan of Treatment Health Maintenance Due Date Last Done Comments Cervical Cancer Screening 1985 Depression Screening 1985 Varicella Vaccines (1 of 2 - 13+ 2-dose series) 1998 Regular Well Visit/Exam 18-64 2003 Pneumococcal vaccine <65 (1 of 2 - PCV) 2004 HPV Vaccines (1 - 3-dose SCD M series) 2012 Covid-19 Vaccine (3 - 2023-2 5 season) 2024 04/26/2022, 04/06/2022 Influenza Vaccine (#1) 2025 06/24/2013, 2013 DTaP/Tdap/Td Vaccine (7 - Td or Tdap) 06/03/2030 06/03/2020, 06/01/2020, 06/23/2013, Additional history exists Hepatitis C Screening Completed 01/09/2021 , 11/22/2020, 11/17/2020, Additional history exists Procedures Procedure Name Priority Date/Time Associated Diagnosis Comments OH INCISION & DRAINAGE ABSCESS SIMPLE/SINGLE Routine 12/27/2024 [...] Recently Relevant to Health Maintenance Results * OH INCISION & DRAINAGE ABSCESS SIMPLE/SINGLE (12/27/2024 2:32 [...] Line Acceptable Urine 12/27/2024 8:58 AM CDT Fidel De Anda DO POINT OF CARE TEST ORDERABLES Final Result * Troponin T high-sensitivity 2-hour (12/27/2024 8:56 AM CDT) Trop T hs <6 <=14 ng/L Comment: Interpretive Data For further hscTnT resources including the diagnostic algorithm and an aid in interpretation, copy and paste this link: https://nrl.testcatalog.org/show/hsTrop Current Interpretive Data last revised 2020. Trop T hs delta 0 ng/L [facility] Trop T hs interp Insignificant [facility] Blood 12/27/2024 8:56 AM CDT 12/27/2024 8:58 AM CDT Fidel De Anda DO LAB BLOOD ORDERABLES Final Res ult [facility] [address] [facility] [place] [address] * (ABNORMAL) Urinalysis reflex to microscopic and culture Urine (12/27/2024 8:36 AM CDT) Color, ur Yellow Yellow Clarity, ur Clear Clear [facility] Specific gravity, ur 1.019 1.003 - 1.030 [facility] pH, urine 6.0 [facility] Comment: Interpretive Data U rine pH is affected by diet, medications, systemic acid-base disturbances, and renal tubular function. pH may affect urinary stone formation. For example, urine pH below 6.0 may help reduce the tendency for calcium phosphate stones and pH greater than 6.0 may reduce the tendency for uric acid stone formation. Source: [facility] [employer] Current Interpretive Data was last revised on 2017 Protein, ur ql Negative Negative [facility] Glucose, ur ql Negative Negative [facility] Ketones, ur Trace Negative [facility] Bilirubin, ur Negative Negative [facility] Blood, ur Negative Negative [facility] Urobilinogen, ur 2.0(A) <2.0 mg/dL [facility] Nitrite, ur Negative Negative [facility] Leukocyte esterase, ur 2+(A) Negative [facility] UA reflex comment Reflex to microscopic UA will be performed. [facility] Urine 12/27/2024 8:36 AM CDT 12/27/2024 8:40 AM CDT Fidel De Anda DO LAB MICROBIOLOGY - GENERAL ORD ERABLES Final Result [facility] [address] Department [place] [address] * (ABNORMAL) Drugs of Abuse Screen, Urine [...] 2023. Barbiturates, ur Not Detected CutOff 200ng/mL [facility] Comment: Interpretive Data - Barbiturates: Samples containing greater than 200 ng/mL secobarbital or other cross-reacting barbiturate compounds are reported as positive. False positive and false negative results are possible. Confirmatory testing required for definitive results. Current Interpretive Data was last reviewed 2023. Benzodiazepines, ur Screen Positive, presumptive (A) CutOff 100ng/mL [facility] Comment: Interpretive Data - Benzodiazepines: Samples containing greater than 100 ng/mL nordiazepam or other cross-reacting compounds are reported as positive. False positive and false negative results are possible. Confirmatory testing required for definitive results. Current Interpretive Data was last reviewed 2023. Cannabinoids, ur Screen Positive, presumptive (A) CutOff 50 ng/mL [facility] Comment: Interpretive Data - Cannabinoids: Samples containing greater than 50 ng/mL delta-9 THC -COOH or other cross- reacting compounds are reported as positive. False positive and false negative results are possible. Confirmatory testing required for definitive results. Current Interpretive Data was last reviewed 2023. Cocaine, ur Screen Positive, presumptive (A) CutOff 150ng/mL [facility] Comment: Interpretive Data - Cocaine: Samples containing greater than 150 ng/mL benzoylecgonine or other cross- reacting compounds are reported as positive. False positive and false negative results are possible. Confirmatory testing required for definitive results. Current Interpretive Data was last reviewed 2023. Fentanyl, Ur Screen Positive, presumptive (A) CutOff 5 ng/mL [facility] Comment: Interpretive Data - Fentanyl: Samples containing greater than 5 ng/mL norfentanyl, fentanyl, or other cross-reacting fentanyl compounds are reported as positive. False positive and false negative results are possible. Confirmatory testing required for definitive results. Current Interpretive Data was last reviewed 2023. Methadone, ur Not Detected CutOff 300ng/mL [facility] Comment: Interpretive Data - Methadone: Samples containing greater than 300 ng/mL d,l-methadone or other cross-reacting compounds are reported as positive. False positive and false negative results are possible. Confirmatory testing required for definitive results. Current Interpretive Data was last reviewed 2023. Opiates, ur Not Detected CutOff 300ng/mL [facility] Comment: Interpretive Data - Opiates: Samples containing greater than 300 ng/mL morphine or other cross-reacting compounds are reported as positive. False positive and false negative results are possible. Confirmatory testing required for definitive results. Current Interpretive Data was last reviewed 2023. Oxycodone, ur Not Detected CutOff 100ng/mL [facility] Comment: Interpretive Data - Oxycodone: Samples containing greater than 100 ng/mL oxycodone or other cross-reacting compounds are reported as positive. False positive and false negative results are possible. Confirmatory testing required for definitive results. Current Interpretive Data was last reviewed 2023. Phencyclidine, ur Not Detected CutOff 25 ng/mL [facility] Comment: Interpretive Data - Phencyclidine: Samples containing [...] AM CDT 12/27/2024 8:40 AM CDT Narrative [facility] - 12/27/2024 9:08 AM CDT Drug of Abuse screening is performed by immunoassay for medical purposes only. This is not to be used for Pain Management purposes. Fidel Adilson LAB URINE ORDERABLES Final Res ult Performing Organization Address [facility] Co de Phone Number [address] [place] [address] * (ABNORMAL) Urinalysis, microscopic only (12/27/2024 8:36 AM CDT) WBC, ur 6-10(A) 0 - 5 /HPF RBC, ur 0-2 0 - 2 /HPF [facility] Epithelial cells, squamous, ur 1-5 0 - 5 /HPF [facility] Mucous, ur Present(A) [facility] Hyaline casts, ur 1-5 0 - 10 /LPF [facility] Culture Reflex Comment Reflex conditions for urine culture (WBC >10) not met. [facility] Urine 12/27/2024 8:36 AM CDT 12/27/2024 8:40 AM CDT Fidel De Anda DO LAB URINE ORDERABLES Final Res ult Performing Organization Address [facility] Co de Phone Number [address] [place] [address] * COVID-19 Coronavirus RNA Nasopharyngeal (12/27/2024 7:02 AM CDT) COVID-19 RNA Negative Negative Nasopharyngeal 12/27/2024 7: 02 AM CDT 12/27/2024 7:07 AM CDT Narrative CONSTANZA - 12/27/2024 7:41 AM CDT Is the patient experiencing any symptoms consistent with COVID (eg. Fever, cough, shortness of breath)?->Unsure due to altered mental status What is the reason for testing?->Screening prior to Behavioral health admission Interpretive data Testing performed by [facility]. This test is performed using the [employer] Xpert Xpress CoV-2 plus assay. This is a real-time RT-PCR test intended for the qualitative detection of nucleic acid from the SARS-CoV-2. This assay has been cleared by the [place] Food and Drug administration. The performance characteristics have been verified by the [facility]. Results must be considered in the clinical context, and a negative result does not rule out infection. Interpretive data last revised 2023. Interpretive data Testing performed by [facility]. This test is performed using the [employer] Xpert Xpress CoV-2 plus assay. This is a real-time RT-PCR test intended for the qualitative detection of nucleic acid from the SARS-CoV-2. This assay has been cleared by the [place] Food and Drug administration. The performance characteristics have been verified by the [facility]. Results must be considered in the clinical context, and a negative result does not rule out infection. Interpretive data last revised 2023. Fidel De Anda DO LAB MICROBIOLOGY - GENERAL ORD ERABLES Final Result [facility] [address] Department [place] [address] * Troponin T high-sensitivity series (baseline, 2hr, [...] ORDERABLES Final Res ult Performing Organization Address [facility] de Phone Number [facility] [address] [place] [address] * eGFR (12/27/2024 6:48 AM CDT) Pathologist [facility] eGFR >90 >=60 mL/min/1. 73 m2 Comment: [...] ORDERABLES Final Res ult Performing Organization Address [facility] Co de Phone Number [facility] [address] [place] [address] * Differential, auto (12/27/2024 6:48 AM CDT) Pathologist [facility] Neutrophil abs 2.54 1.50 - 6.50 K/cumm Imm gran abs 0.01 0.00 - 0.10 K/cumm [facility] Lymphocyte abs 0.96 0.80 - 3.30 K/cumm [facility] Monocyte abs 0.35 0.20 - 0.80 K/cumm [facility] Eosinophil abs 0.09 0.00 - 0.50 K/cumm [facility] Basophil abs 0.02 0.00 - 0.10 K/cumm [facility] Neutrophil pct 63.9 % [facility] Comment: Interpretive Data Percent cell count reference ranges are not reported, since discordance with absolute values may lead to misinterpretation of CBC data. Current Interpretive Data was last revised on 2017. Imm gran pct 0.3 % [facility] Comment: Interpretive Data Percent cell count reference ranges are not reported, since discordance with absolute values may lead to misinterpretation of CBC data. Current Interpretive Data was last revised on 2017. Lymphocyte pct 24.2 % [facility] Comment: Interpretive Data Percent cell count reference ranges are not reported, since discordance with absolute values may lead to misinterpretation of CBC data. Current Interpretive Data was last revised on 2017. Monocyte pct 8.8 % [facility] Comment: Interpretive Data Percent cell count reference ranges are not reported, since discordance with absolute values may lead to misinterpretation of CBC data. Current Interpretive Data was last revised on 2017. Eosinophil pct 2.3 % [facility] Comment: Interpretive Data Percent cell count reference ranges are not reported, since discordance with absolute values may lead to misinterpretation of CBC data. Current Interpretive Data was last revised on 2017. Basophil pct 0.5 % [facility] Comment: Interpretive Data Percent cell count reference ranges are not reported, since discordance with absolute values may lead to misinterpretation of CBC data. Current Interpretive Data was last revised on 2017. Blood 12/27/2024 6:48 AM CDT 12/27/2024 6:55 AM CDT us Fidel De Anda DO LAB BLOOD ORDERABLES Final Res ult [facility] [address] Department [place] [address] * (ABNORMAL) CBC with auto differential (12/27/2024 6:48 AM CDT) WBC 3.97 3.80 - 9.90 K/cumm Hgb 10.6(L) 11.9 - 15.5 g/dL [facility] Hct 32.0(L) 35.6 - 45.5 % [facility] Plt 176 150 - 400 K/cumm [facility] MPV 10.1 9.1 - 12.3 fL [facility] RBC 3.54(L) 3.90 - 5.20 M/cumm [facility] MCV 90.4 81.3 - 96.4 fL [facility] MCH 29.9 27.1 - 33.3 pg [facility] MCHC 33.1 32.3 - 35.7 g/dL [facility] RDW CV 14.2 11.1 - 14.9 % [facility] RDW SD 47.2 35.7 - 48.1 fL [facility] NRBC abs 0.00 0.00 - 0.01 K/cumm [facility] Blood 12/27/2024 6:48 AM CDT 12/27/2024 6:55 AM CDT [employer] LAB BLOOD ORDERABLES Final Res ult Performing Organization Address [facility] de Phone Number [address] [place] [address] * TSH (12/27/2024 6:48 AM CDT) Pathologist [facility] Thyroid Stimulating Hormone 3.42 0.30 - 4.20 mcIUnit/mL Blood 12/27/2024 6:48 AM CDT 12/27/2024 6:55 AM CDT [employer] ([employer] LAB BLOOD ORDERABLES Final Res ult Performing Organization Address [facility] Co de Phone Number [address] [place] [address] * Ethanol (12/27/2024 6:48 AM CDT) Ethanol <10 <=10 mg/dL Comment: Interpretive Data Legal limit of intoxication > or = 80 mg/dL Levels > or = 400 mg/dL are potentially TOXIC. Current interpretive data was last revised on 2018. Blood 12/27/2024 6:48 AM CDT 12/27/2024 6:55 AM CDT Fidel De Anda DO LAB BLOOD ORDERABLES Final Res ult Performing Organization Address [facility] Co de Phone Number [facility] [address] [place] [address] * Acetaminophen level (12/27/2024 6:48 AM CDT) [...] after ingestion Consult toxicology or poison control ([phone]) for unknown ingestion time. Current interpretive data was last revised 2023. Blood 12/27/2024 6:48 AM CDT 12/27/2024 6:55 AM CDT Fidel De Anda [employer] LAB BLOOD ORDERABLES Final Res ult Performing Organization Address [facility] de Phone Number [facility] [address] * Salicylate level (12/27/2024 6:48 AM CDT) Salicylate <1.0 <=1.0 mg/dL Comment: Interpretive Data Toxic: 30 mg/dL or greater. Current interpretive data was last revised 2023. Blood 12/27/2024 6:48 AM CDT 12/27/2024 6:55 AM CDT Fidel De Anda DO LAB BLOOD ORDERABLES Final Res ult Performing Organization Address [facility] Co de Phone Number [facility] [address] [place] [address] * (ABNORMAL) Comprehensive metabolic panel (12/27/2024 6:48 AM CDT) Sodium 142 135 - 145 mmol/L Potassium, pl 3.0(L) 3.3 - 4.9 mmol/L [facility] Chloride 106 97 - 110 mmol/L [facility] CO2 25 22 - 32 mmol/L [facility] Anion gap 11 2 - 15 mmol/L [facility] BUN 8 6 - 25 mg/dL [facility] Creatinine 0.74 0.60 - 1.10 mg/dL [facility] Glucose 97 70 - 199 mg/dL [facility] Comment: Interpretive Data Fasting glucose >/= 126 [...] 2022. Calcium 8.5 8.5 - 10.3 mg/dL [facility] Bilirubin, total 0.5 0.1 - 1.2 mg/dL [facility] Protein, pl 6.5 6.5 - 8.5 g/dL [facility] Albumin 4.0 3.5 - 5.0 g/dL [facility] Alk phos 82 40 - 130 Units/L [facility] ALT 16 7 - 45 Units/L [facility] AST 25 10 - 45 Units/L [facility] Blood 12/27/2024 6:48 AM CDT 12/27/2024 6:55 AM CDT us Fidel De Anda DO LAB BLOOD ORDERABLES Final Res ult [facility] [place] [address] * ECG 12 lead (12/27/2024 6:35 AM CDT) [facility] Ventricular Rate EKG/Min 93 BPM [facility] Atrial Rate 93 BPM [facility] OH-Interval (MSEC) 132 ms [facility] QRS-Interval (MSEC) 82 ms [facility] QT-Interval (MSEC) 394 ms [facility] QTc 489 ms [facility] P Union 63 degrees [facility] R Union 25 degrees [facility] T Union 41 degrees [facility] Diagnosis Normal sinus rhythm Prolonged QT Confirmed by KB HERNANDEZ M.D. ([id number]) on 12/27/2024 4:31:29 PM [facility] 12/27/2024 6:35 AM CDT 12/27/2024 4:31 PM CDT Fidel Adilson DO ECG ORDERABLES Final Result [facility] * (ABNORMAL) Hepatitis C RNA, Quantitative, NAAT (10/04/2020 9:52 PM CDT) [facility] HCV RNA IU/mL 2,207,18 9 [facility] HCV RNA log IU/mL 6.34 log IU/mL [facility] Super[facility] HCV quant by NAAT interp Detected (A) Not Detected [facility] Comment: INTERPRETIVE INFORMATION: HCV by Quantitative NAAT [...] and Cellular Tissue-Based Products (HCT/P). Performed By: [facility] [address] [place] [id number] Director Operations Broadcast: Rosa Bean MD, MS 10/04/2020 9:52 PM CDT 10/04/2020 9:56 PM CDT Narrative Resulting Agency Comment IN Jeremy Aguirre MD LAB BLOOD ORDERABLES Final Result [facility] [address] [place] [address], [facility] [phone] from Last 3 Months or Most Recently Relevant to Health Maintenance [place] [address] [place] [address] [facility] Advance Directives For more information, please contact: [phone] * Full Code (Latest Code Status on File) Date Activated Date Inactivated Comments 07/30/2019 1:49 PM 07/31/2019 7:14 PM Care Teams Bullet Slugs Inspector Relationship Specialty Start Date End Date No, Physician PCP - General 09/26/16
[2025-01-06 04:19] VITALS: PULSE 69; RESP 18; TEMP 36.9; O2SAT 99
[2025-01-06] MEDS: DOXYCYCLINE HYCLATE 100 MG TABLET PO (04:49)
[2025-01-06] MEDS: ACETAMINOPHEN 325 MG TABLET 650 MG PO (04:49)
[2025-01-06 04:50] VITALS: BP 129/84; PULSE 79; RESP 18; O2SAT 97
[2025-01-06] MEDS: LIDOCAINE 5% PATCH 1 PATCH TRANSDERM (04:50)
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
== END 2025-01-06 04:55 | disposition home or self-care (01) ==
PROVIDERS: Emergency Provider Emergency Medicine
DX: L03.311 Cellulitis of abdominal wall (principal); K76.9 Liver disease, unspecified; F17.210 Nicotine dependence, cigarettes, uncomplicated; Z86.19 Personal history of other infectious and parasitic diseases
CPT/HCPCS: 99283; A9270